=== PATIENT | male | born 1950 | race Caucasian/White ===

== ENCOUNTER 2018-03-07 04:56 | Inpatient (IN) ==
--- NOTE | 2018-02-23 13:20 | Anesthesiology Consultation ---
Date of Service February 23, 2018 Assessment & Plan (1) Encounter for pre-operative examination: Plan: - Check BSG AM DOS - PCP= 03/01/18= diabetes previously controlled with diet/exercise. Preop labs with glucose 266. Evaluated by PCP and patient started on Metformin. Patient advised to hold AM DOS. Surgeon made aware. Will check BSG AM DOS. - Hematology= 03/2017= Hx ITP/CLL. Prior response to steroids (but caused issue with glucose control); subsequently placed on eltrombopag with "wonderful response.. doing extremely well..with no evidence of progressive disease." Chart Review Chart Review: Acceptable Risk for Surgery and Patient seen in Pre Admission Testing Teaching & Discussion Pre-Anesthesia Teaching/Discussion Notes: Instructed NPO after midnight before surgery,except medications with 15 cc of water. Medication instructions provided according to the PAT guidelines. History Surgery Operation Date: 03/07/18 07:00 Proposed Procedures p Left Total Knee Replacement - Thierno Carr MD Height/Weight Height: 5 ft 9 in Weight: 113.5 kg Allergies Allergy/AdvReac Type Severity Reaction Status Date / Time lisinopril Allergy Cough Uncoded 03/07/18 06:00 Medications Home Medications Medication Instructions Recorded Confirmed Last Taken diclofenac sodium 75 mg PO BID 02/20/18 03/07/18 02/25/18 08:00 eltrombopag [Promacta] 25 mg PO Q2D 02/20/18 03/07/18 03/06/18 08:00 ibuprofen [Advil] 2 tab PO UD PRN 02/20/18 03/07/18 02/25/18 08:00 losartan 50 mg PO QAM 02/20/18 02/20/18 03/06/18 08:00 pantoprazole 40 mg PO Q2D 02/20/18 03/07/18 03/06/18 19:00 metformin 500 mg PO BID 03/03/18 03/07/18 03/06/18 19:00 Active Medications Generic Name Dose Route Start Last Admin Trade Name Freq PRN Reason Stop Dose Admin Acetaminophen 1,000 mg 03/07/18 06:00 03/07/18 06:12 Tylenol PO 03/07/18 18:00 1,000 mg PREOP RAJEEV Administration Famotidine 20 mg 03/07/18 06:00 03/07/18 06:13 Pepcid PO 03/07/18 18:00 20 mg PREOP RAJEEV Administration Gabapentin 300 mg 03/07/18 06:00 03/07/18 06:12 Neurontin PO 03/07/18 18:00 300 mg PREOP RAJEEV Administration Lactated Ringer's 1,000 mls @ 60 mls/hr 03/07/18 06:00 03/07/18 06:03 Lr IV 03/07/18 22:39 Not Given .[id number] RAJEEV Cefazolin Sodium 2,000 mg in 15 mls @ 3.75 mls/min 03/07/18 06:00 03/07/18 06 :58 Ancef 2000mg IV 03/07/18 18:00 3.75 mls/min PREOP RAJEEV Administration Protocol Bupivacaine Liposome 266 mg/ 100 mls @ 0 mls/hr 03/07/18 06:00 03/07/18 07:40 Bupivacaine HCl/Epinephrine INFIL 03/07/18 18:00 100 mls/hr Bitart 50 ml/ Sodium Chloride PREOP RAJEEV Administration 30 ml/ Syringe Lactated Ringer's 1,000 mls @ 999 mls/hr 03/07/18 06:00 03/07/18 07:25 Lr IV 03/07/18 18:00 999 mls/hr .Q1H1M RAJEEV Infusion Metoclopramide HCl 10 mg 03/07/18 06:00 03/07/18 06:12 Reglan PO 03/07/18 18:00 10 mg PREOP RAJEEV Administration Scopolamine 1.5 mg 03/07/18 06:00 03/07/18 06:13 Transderm-Scop TD 03/07/18 18:00 1.5 mg PREOP RAJEEV Administration Past Medical History Medical History Acid reflux "CONTROLLED" CLL (chronic lymphocytic leukemia) History of ITP HX ITP/THROMBOCYTOPENIA; S/P CHEMO TREATMENT/NOW STABLE ON PROMACTA (BASELINE PLTS NOW IN 200'S) Hx of sleep apnea S/P UPPP; NO DEVICE Hypertension Obesity Past Family History Family History Grandmother (Maternal) Family history of breast cancer Past Surgical History Surgical History History of colonoscopy History of endoscopy History of eye surgery EYEBROW/EYELIDS LIFT SURGERY History of left knee surgery History of uvulopalatopharyngoplasty 2/2 SLEEP APNEA Past Anesthesia History No Hx of Anesthesia Complications and No Family Hx of Anesthesia Complications History of PONV No Motion Sickness Screening History of Motion Sickness: No Social History Smoking Status: Former smoker tobacco type: cigarettes Smoking cigarettes per day: QUIT 1976 Do You Dip or Chew Tobacco: No (HX OF, QUIT 10 YRS AGO) Hx Alcohol Use: Yes Alcohol type: beer, wine and hard liquor alcohol intake frequency: other Alcohol Intake Frequency Comment: 5 DRINKS/WEEK Hx Substance Use: No substance use type: does not use Exercise / Class Metabolic Activity III < 4 Walking/Shop/Light housework Review of Systems Patient denies chest pain, shortness of breath, cough, wheezing, palpitations. Physical Exam Vital Signs Last Vital Signs Temp 37.1 C 03/07/18 05:43 Pulse 80 03/07/18 05:43 Resp 20 03/07/18 05:43 BP 162/86 H 03/07/18 05:43 Pulse Ox 95 03/07/18 05:43 VITALS BP 135/87 P 94 TEMP 98.0 SP02 95%RA RESP 16 Full neck and c-spine range of motion. Full TMJ range of motion. TMD 3 finger breaths Mallampati Score 1 Dentition: lower left side permanent bridge Lungs: clear throughout to auscultation Cardiac: regular rate and rhythm, no murmurs noted Spine: normal Carotid arteries: negative bruit Extremities: no edema Trimmed brunson Testing Electrocardiogram Date: 02/23/18 NSR with 87bpm. Minimal voltage criteria for LVH, may be normal variant. Chest X-Ray Date: 02/23/18 Findings: + NAD Laboratory Results 02/23/18 13:28 02/23/18 13:28 Blood Type O Positive 02/23/18 13:28 Antibody Screen NEGATIVE 02/23/18 13:28 PT 11.7 Seconds (9.0-12.0) 02/23/18 13:28 INR 1.2 (0.9-1.1) H 02/23/18 13:28 APTT 28.9 Seconds (21.0-31.0) 02/23/18 13:28 03/07/18 07:24 POC Glucose 184 H Surgeon made aware of elevated glucose; prior diabetes control with diet/ exercise per PCP-- PCP reviewed preop testing and initiated Metformin (surgeon aware).
--- NOTE | 2018-02-23 13:24 | PAT Medication Instructions ---
Medication Instructions Date of Service February 23, 2018 Home Medications diclofenac sodium 75 mg PO BID eltrombopag [Promacta] 25 mg PO Q2D ibuprofen [Advil] 2 tab PO UD PRN losartan 50 mg PO QAM pantoprazole 40 mg PO Q2D Continue as directed pantoprazole 40 mg PO Q2D ASK your surgeon for instructions diclofenac sodium 75 mg PO BID ibuprofen [Advil] 2 tab PO UD PRN ASK your prescriber and surgeon eltrombopag [Promacta] 25 mg PO Q2D DO NOT take the morning of surgery losartan 50 mg PO QAM Other Notes If you have any questions please call us at [phone] or [phone] or [phone] or [phone]
--- NOTE | 2018-02-23 14:04 | XRay Report ---
XR chest Pre-admission PA/Lat CLINICAL HISTORY: pat preoperative evaluation COMPARISON STUDY: 08/11/2016 FINDINGS: The bones soft tissues and hemidiaphragms are normal. The cardiomediastinal silhouette is n ormal. The lungs are clear. The pulmonary vasculature is normal. IMPRESSION: Negative chest. The above report was generated using voice recognition software. It may contain grammatical, syntax or spelling errors. Electronically signed by: Devonte Bledsoe M.D. 02/23/2018 2:02 PM
[2018-02-23 14:06] LABS: Basophils # (auto) 0.04 K/uL (0-0.2); Basophils % (auto) 0.4 %; Eosinophils # (auto) 0.11 K/uL (0-0.5); Hematocrit (blood only) 43.8 % (42-52); Hemoglobin 15.1 g/dL (14.0-18.0); Immature Granulocytes # (auto) 0.04 K/uL (0.00-0.02); Immature Granulocytes % (auto) 0.4 %; Lymphocytes # (auto) 2.11 K/uL (1.2-3.4); Mean Corpuscular Hgb Conc 34.5 g/dL (32-36); Mean Corpuscular Volume 90.9 fL (80-100); Mean Platelet Volume 10.8 fL (7.4-10.4); Monocytes # (auto) 0.51 K/uL (0.11-0.59); Monocytes % (auto) 4.8 %; Neutrophils # (auto) 7.73 K/uL (1.4-6.5); Neutrophils % (auto) 73.4 %; Platelet Count 228 K/uL (130-400); RDW Coefficient of Variation 12.8 % (11.5-14.5); RDW Standard Deviation 42.5 fL (36.4-46.3); Red Blood Count 4.82 M/uL (4.7-6.1); White Blood Count 10.54 K/uL (4.8-10.8)
[2018-02-23 14:18] LABS: INR 1.2 (0.9-1.1); Partial Thromboplastin Ratio 1.1; Partial Thromboplastin Time 28.9 Seconds (21.0-31.0); Prothrombin Time 11.7 Seconds (9.0-12.0)
[2018-02-23 15:40] LABS: BUN Creatinine Ratio 17.9 (10-20); Calcium 9.2 mg/dl (8.5-10.1); Creatinine Clr Calc Pharmacy 83.2 ml/min; Est GFR (African American) 82.8; Est GFR (Non-African American) 71.5; Potassium 4.1 mmol/L (3.5-5.1)
--- NOTE | 2018-03-03 08:08 | History and Physical Report ---
DATE OF ADMISSION: 03/07/2018 CHIEF COMPLAINT: Bilateral knee pain, DJD, left side greater than right. HISTORY OF PRESENT ILLNESS: The patient is a 67-year-old gentleman with a long history of knee problems who presents for surgical treatment of his left knee. 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 Del Rio for quite some time. He has been through extensive conservative treatment including injections which have become less successful over time. Both knees bother him quite a bit. He does have a history of open meniscectomy done by Dr. Gann when he was in high school on the left side. No groin pain, mostly just knee pain. The more he walks, the more it hurts. He is having difficulty doing his job and getting around like he liked to. He now would like to proceed with surgical treatment. Of note, the patient has a history of CLL as well as ITP managed by hydrogen power plant engineer in [place]. We will contact them and labs are all normal and they recommended just normal DVT prophylaxis. PAST MEDICAL HISTORY: 1. CLL, under control. 2. ITP, under current medical management by hydrogen power plant engineer. 3. Hypertension. 4. Asthma. 5. Obesity with a BMI of 37. 6. Gastroesophageal reflux disease. 7. Cervical spine disease. PAST SURGICAL HISTORY: Previous surgeries include: 1. Left knee open meniscectomy in high school years. 2. Bilateral blepharoplasty. ALLERGIES: None. CURRENT MEDICINES: Include: 1. Promacta for ITP. 2. Amlodipine 5 mg a day. 3. Zantac 150 mg twice a day. 4. Diclofenac. SOCIAL HISTORY: A 66-year-old male. He is . One drink per week. Two children. 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 FAMILY HISTORY: Noncontributory. REVIEW OF SYSTEMS: Significant for the CLL and ITP managed at [place]. He has had this for 15 years. No history of DVT or PE. No known bleeding problems. PHYSICAL EXAMINATION: GENERAL: Reveals a pleasant, middle-aged male who looks to be in pretty good health. HEENT: Benign. NECK: Supple. No lymphadenopathy. LUNGS: Clear to auscultation. HEART: Regular rate and rhythm. ABDOMEN: Soft, nontender, nondistended. EXTREMITIES: Grossly neurovascularly intact except as follows: Examination of the left knee reveals patient walks with a bit of a waddling gait. He has got varus alignment to his left knee. He has got well-healed medial incision. He does have a varus thrust with weightbearing. Range of motion is 5 to 125. He does have a soft endpoint to his Swati, but no pivot. He has got some slight valgus laxity to stress testing. X-RAYS: X-ray of left knee reviewed. Shows advanced left knee DJD. He has got complete loss of his medial joint space. He has got tibial femoral subluxation. He has got extensive osteophytes of the medial side of his knee. He has got less severe disease in his right knee. ASSESSMENT: A 66-year-old male with history of left knee open meniscectomy in the past with advanced bilateral knee degenerative joint disease. Left side is worse than the right. He has failed conservative treatment and would like to proceed with left knee replacement. PLAN: We are going to take him to the operating room and do a left total knee replacement. The risks and benefits of this procedure were explained to the patient include but not limited to DVT, PE, , infection, neurological injury, vascular injury, bleeding problem, pain, limited range of motion, stiffness, failure to relieve his symptoms, incomplete relief of symptoms, need for further surgery in future, fracture, leg length inequality, nerve palsy, etc. The patient understands and desires to proceed. Informed consent was obtained. He does have a history of CLL and ITP. We checked with hydrogen power plant engineer in [place] and they have just recommended normal DVT prophylaxis. In light of that, we use TEDs, SCDs, and aspirin twice a day. We will have to follow his platelet levels in the hospital. His blood glucose was elevated and he has seen Dr. Maldonado and he is undergoing management for this to get this under better control. As far as discharge plans, he is planning to be discharged to home using [facility] home health program. GRABIEL
[2018-03-07] MEDS: LR 500ML BOLUS, THEN 15ML/HR IV SCH ×6 (05:35→17:31)
[2018-03-07] MEDS ORDERED: METOCLOPRAMIDE HCL 10 MG TABLET PO SCH (06:00)
[2018-03-07] MEDS ORDERED: CEFAZOLIN 2000MG 2,000 MG/15 ML SYR IV SCH (06:00)
[2018-03-07] MEDS ORDERED: FAMOTIDINE 20 MG TAB PO SCH (06:00)
[2018-03-07] MEDS ORDERED: ACETAMINOPHEN 500 MG TAB PO SCH (06:00)
[2018-03-07] MEDS ORDERED: BUPIVACAINE LIPOSOME/PF 266 MG, BUPIVACAINE/EPINEPHRINE 50 ML, SODIUM CHLORIDE 0.9% 30 ... INFIL SCH (06:00)
[2018-03-07] MEDS ORDERED: SCOPOLAMINE 1.5 MG TDSY TD SCH (06:00)
[2018-03-07] MEDS ORDERED: GABAPENTIN 300 MG PO SCH (06:00)
[2018-03-07] MEDS ORDERED: LR 60ML/HR IV SCH (06:00)
[2018-03-07] MEDS ORDERED: fentaNYL citrate 100 MCG/2 ML VIAL ONE (06:24)
[2018-03-07] MEDS ORDERED: MIDAZOLAM HCL 1 MG/ML 2ML VIAL ONE ×2 (06:24→07:03)
[2018-03-07] MEDS ORDERED: BUPIVACAINE 0.5 % 5 MG/1 ML PF 10ML VIAL ONE (06:27)
[2018-03-07] MEDS ORDERED: ROPIVACAINE 0.5% 5 MG/ML 30 ML VIAL ONE (06:27)
[2018-03-07] MEDS ORDERED: BACITRACIN INJ 50,000 UNIT VIAL ONE (06:28)
[2018-03-07] MEDS ORDERED: SODIUM CHLORIDE 0.9% PF 50 ML VIAL ONE (06:28)
[2018-03-07] MEDS ORDERED: BUPIVACAINE LIPOSOME 1.3% 266 MG/20 ML VIAL ONE (06:29)
[2018-03-07] MEDS ORDERED: EPINEPHrine INJ 1 MG/ML AMP ONE (06:29)
[2018-03-07] MEDS ORDERED: BUPIVACAINE 0.25% 30 ML VIAL ONE (06:29)
[2018-03-07] MEDS ORDERED: TRANEXAMIC ACID 1,000 MG **IV Intra-op IV SCH (06:30)
--- NOTE | 2018-03-07 06:54 | History & Physical Bridge Note ---
Date of Service March 07, 2018 History & Physical Bridge Note I have examined the patient, reviewed the History & Physical and in the interval since the performance of the History & Physical I have noted the following changes of clinical significance: no changes noted
[2018-03-07] MEDS ORDERED: PROPOFOL IV EMULSION 10 MG/ML 20 ML VIAL IV ONE ×2 (07:03→08:52)
[2018-03-07] MEDS ORDERED: VANCOMYCIN HCL 1000MG/20ML VIAL ONE (07:07)
[2018-03-07] MEDS ORDERED: ATROPINE SULFATE 0.1 MG/ML 10ML SYR IV PRN (07:48)
[2018-03-07] MEDS ORDERED: ePHEDrine sulfate 50 MG/ML AMP IV PRN (07:48)
--- NOTE | 2018-03-07 09:03 | Post Operative Brief Note ---
Immediate Post Op Note v1 Date of Surgery March 07, 2018 Pre & Post Diagnosis Operation Date: 03/07/18 07:00 Pre-Op Diagnosis: Left Knee Degenerative Joint Disease Post-Op Diagnosis: Left Knee Degenerative Joint Disease Procedure Operation Date: 03/07/18 07:00 Actual Procedures p Left Total Knee Arthroplasty, Cemented(Left) - Thierno Carr MD Surgeon Thierno Carr MD Oval Or Circular Glass Cutter Tisha, PAC Estimated Blood Loss 50 Findings Consistent with Post-Op Diagnosis Fluids 600 cc Specimens Left Knee Drains Jones Catheter Anesthesia Type Spinal MAC Complications none Disposition Accompanied Patient To Recovery: No Disposition: Recovery Room
--- NOTE | 2018-03-07 09:33 | XRay Report ---
XR knee LT 2V routine CLINICAL HISTORY: Surgical Post Op COMPARISON: None. DISCUSSION: Total left knee arthroplasty. Good contact between prosthetic and underlying bone. Expect ed postoperative soft tissue change. IMPRESSION: Anatomic alignment post total left knee arthroplasty. The above report was generated using voice recognition software. It may contain grammatical, syntax or spelling errors. Electronically signed by: Devonte Bledsoe M.D. 03/07/2018 9:32 AM
[2018-03-07] MEDS ORDERED: BISACODYL 10 MG SUPP PR PRN (10:30)
[2018-03-07] MEDS ORDERED: MAGNESIUM HYDROXIDE SUSP 30 ML UDC PO PRN (10:30)
[2018-03-07] MEDS ORDERED: CARBOHYDRATES FOR HYPOGLYCEMIA PO PRN (10:30)
[2018-03-07] MEDS ORDERED: METOCLOPRAMIDE HCL INJ 5 MG/ML 2 ML VIAL IV PRN (10:30)
[2018-03-07] MEDS ORDERED: HYDROmorphone INJ 0.5 MG/0.5 ML SYR IV PRN (10:30)
[2018-03-07] MEDS ORDERED: ALUMINUM/MAGNESIUM SUSP 30 ML UDC PO PRN (10:30)
[2018-03-07] MEDS ORDERED: ONDANSETRON INJ 2 MG/ML 2 ML VIAL IV PRN (10:30)
[2018-03-07] MEDS ORDERED: GLUCAGON FOR INJ 1 MG VIAL SQ PRN (10:30)
[2018-03-07] MEDS ORDERED: PHARMACY GLYCEMIC MGMT CONSULT STA (10:30)
[2018-03-07] MEDS ORDERED: DEXTROSE 50% 50 ML SYRINGE IV PRN (10:30)
[2018-03-07] MEDS ORDERED: GLUCOSE 10 TABS/TUBE PO PRN (10:30)
[2018-03-07] MEDS ORDERED: GLUCOSE 40% GEL 15 GM TUBE PO PRN (10:30)
[2018-03-07] MEDS ORDERED: NALOXONE HCL 0.4 MG/1 ML VIAL/CARP IV PRN (10:30)
[2018-03-07] MEDS ORDERED: TAMSULOSIN HCL 0.4 MG CAP PO PRN (10:30)
--- NOTE | 2018-03-07 10:50 | Anesthesiology Progress Note ---
Date of Service March 07, 2018 Anesthesia Post Procedure Vital Signs Vital Signs: Temp Pulse Pulse Resp BP Pulse Ox 03/07/18 09:55 62 16 112/70 95 03/07/18 09:45 36.0 C L 61 15 94/60 L 95 03/07/18 09:35 63 17 104/60 97 03/07/18 09:25 65 12 103/73 96 03/07/18 09:15 65 21 105/70 95 03/07/18 09:09 36.3 C L 65 17 108/60 95 03/07/18 05:43 37.1 C 80 20 162/86 H 95 Pain Intensity Left Knee: Pain Intensity: 0 Notes Mental Status: alert / awake / arousable and participated in evaluation Patient Amnestic to Procedure: Yes Nausea / Vomiting: adequately controlled Pain: adequately controlled Airway Patency, RR, SpO2: stable & adequate BP & HR: stable & adequate Hydration State: stable & adequate Anesthetic Complications: no major complications apparent
[2018-03-07] MEDS ORDERED: PHARMACY GLYCEMIC MGMT CONSULT PRN (11:00)
[2018-03-07] MEDS ORDERED: INSULIN GLARGINE SOLOSTAR 100 UNITS/ML 3 ML PEN SC ONE ×2 (11:30→21:00)
[2018-03-07] MEDS: SODIUM CHLORIDE 0.9% 1000ML 1,000 ML IV SCH ×2 (12:06→19:09)
--- NOTE | 2018-03-07 12:49 | Pharmacy Report ---
Glycemic Control Consultation - Date of Service March 07, 2018 - Scope Scope: Glycemic Pharmacist consulted by Dr Thierno Carr on 03/07/2018 for glycemic control and to write orders per [facility] inpatient glycemic control protocol - Objective Weight: 113.5 kg Accuchecks BSG (last 24hrs): 03/07/18 03/07/18 03/07/18 07:24 09:15 12:11 POC Glucose 184 H 195 H 148 H - Recent Pertinent Medications Outpatient Anti-diabetic Regimen: * metformin 500mg po bid * A1c: pt reports 8.5% on 03/02/18. * ordered for tomorrow am with labs. Risk Factors for Insulin Resistance: * IVF: NS@150 ml/hr * Recent Surgery: TKA POD #0 * Diet: T2DM - Assessment & Plan Assessment & Plan: ASSESSMENT: * Mr. Irene is a 67 yo male s/p TKA. * Pt reports HbA1c of 8.4% on 03/02. He is currently only on metformin 500mg bid as his outpatient regimen. * He did not receive any pre-operative steroids so I have chosen to use weight based insulin dosing with a stress level of 2. * Ordered 10 units of lantus immediately post-op since he had a reported bsg of 195. PLAN FOR INPATIENT GLYCEMIC CONTROL: * Holding outpatient oral diabetes medications * Basal insulin * Lantus per sliding scale * for bsg less than 140 give 0 units * for bsg 140 or greater give 10 units * Bolus insulin * NovoLog per scale ACHS or Q6hrs while NPO * Goal Range: Low 110 mg/dL - High 140 mg/dL * Correction Factor: 20 mg/dL/unit * Nutritional / Prandial insulin per carb ratio of 1 unit per 7 grams CHO consumed * Please note that the plan above was derived based on current level of insulin resistance and hospital stress. These recommendations are appropriate for inpatient admission only. Plan of care upon discharge will need to be reassessed to avoid potential outpatient hypo/hyperglycemia. Thank you.
[2018-03-07] MEDS: INSULIN ASPART 100 UNITS/ML 3 ML PEN SC SCH ×3 (13:17→22:27)
[2018-03-07] MEDS: KETOROLAC TROMETHAMINE 15 MG/ML VIAL IV SCH ×3 (13:17→23:48)
[2018-03-07] MEDS: ACETAMINOPHEN 500 MG TAB PO SCH ×2 (14:23→22:28)
[2018-03-07] MEDS: OXYCODONE HCL IR 5 MG TAB (IMMEDIATE RELEASE) PO PRN (14:23)
[2018-03-07] MEDS ORDERED: TRANEXAMIC ACID 1,000 MG in 0.9 % SODIUM CHLORIDE 100 ML IV SCH (15:00)
[2018-03-07] MEDS: CEFAZOLIN 2000MG 2,000 MG/15 ML SYR IV SCH ×2 (15:11→22:26)
[2018-03-07] MEDS: CHECK SCOPOLAMINE PATCH PLACEMENT SCH ×2 (15:49→23:48)
[2018-03-07] MEDS: FERROUS GLUCONATE 324 MG TAB PO SCH (17:26)
[2018-03-07] MEDS: ASCORBIC ACID 500 MG TAB PO SCH (17:26)
[2018-03-07] MEDS: DOCUSATE SODIUM 100 MG CAP PO SCH (21:10)
[2018-03-07] MEDS: SENNA 8.6 MG TAB PO SCH (21:10)
[2018-03-07] MEDS: TAPENTADOL HCL ER 50 MG TABCR PO SCH (21:10)
--- NOTE | 2018-03-08 00:28 | Operative Report ---
DATE OF OPERATION: 03/07/2018 SURGEON: Thierno Carr MD PROJECT LEADER: DYLON Arias PREOPERATIVE DIAGNOSIS: Left knee degenerative joint disease. POSTOPERATIVE DIAGNOSIS: Same. PROCEDURE PERFORMED: Left cemented posterior stabilized total knee arthroplasty. COMPLICATIONS: None. ESTIMATED BLOOD LOSS: 50 mL. FLUID REPLACEMENT: 600 mL crystalloid fluid replacement. TOURNIQUET TIME: 79 minutes at 300 mmHg. ANESTHESIA: Spinal with adductor canal block. DRAINS: None. SPECIMENS: Left knee sent for pathology. OPERATIVE INDICATIONS: The patient is a 67-year-old gentleman who has had a long history of bilateral knee pain and discomfort, left side greater than the right. He underwent an open meniscectomy back in the late 60s done by Dr. Gann. Over the past 20 years, he developed increased pain, discomfort and deformity in his left knee. He failed all conservative care. He elected to proceed with operative treatment. The patient had significant varus deformity with tibial femoral subluxation and therefore we used a stem tibial tray to maximize stability and decrease loosening. OPERATIVE FINDINGS: Operative findings revealed advanced left knee DJD. He had extensive grade 4 [id number] disease of the medial and patellofemoral compartments with tibial femoral subluxation and extreme bony eburnation on the medial side. He had significant wear of the medial tibial plateau. He had a fixed varus deformity to his knee with about a 15-degree flexion contracture. He had a chronic ACL deficiency. Upon entering the knee joint, the patient's knee joint fluid did look quite inflammatory. It did not look infectious, but inflammatory in nature. OPERATIVE IMPLANTS: Operative implants consisted of: 1. Biomet Vanguard size 72.5 left posterior bifemoral component. 2. Biomet size 75 tibial tray with an 80 x 14 mm offset stem with a 5-mm offset and a small cruciate wing. 3. A 12-mm posterior stabilized polyethylene insert. 4. A 34 x 8.5 all poly patella. OPERATIVE PROCEDURE: The patient was taken to the operating room, identified and placed on the operating table in supine position. All contact areas were appropriately padded. IV antibiotics were provided by anesthesia team. A spinal anesthetic and adductor canal block were provided in the holding area. Jones catheter was placed in sterile fashion. A left thigh tourniquet was then placed and the left lower extremity was then prepped and draped in the usual sterile fashion. The left lateral leg was elevated and exsanguinated using an Esmarch and tourniquet was placed at 300 mmHg. An anterior approach to the left knee was then performed through a longitudinal incision centered over the patella. Sharp dissection was carried through the subcutaneous tissue down to the level of the extensor mechanism. A medial parapatellar arthrotomy incision was made. Some subperiosteal dissection was carried out medially. I did a pretty extensive dissection medial and posteromedially due to his flexion contracture and his fixed varus deformity. The fat pad was resected from beneath the patellar tendon. The lateral patellofemoral ligament was released. The patella was everted and the knee was flexed. The osteophytes were taken off the distal femur. The ACL was absent. The PCL was released from the distal femur and the tibia subluxated anteriorly. I then resected the tibial eminence. The intramedullary canal was entered. I reamed up to a size 14 and then used the reamer as an intramedullary guide to cut the proximal tibia. We cut this several millimeters above the most deficient aspect of the medial tibial plateau as it was pretty worn. I then resected some osteophytes. We then sized this to a size 75 tibia. The tibial tray was pinned in place. The proximal tibia was then prepared for a small cruciate wing and a 5-mm offset post with an 80 x 14 mm stem. The trial implant was assembled and placed in the tibia and fit nicely. Attention was then drawn to the femur. The distal femur was entered with a sharp drill bit. Intramedullary canal was suctioned. A left 6-degree valgus cutting guide was placed. Distal femoral cutting block was pinned in place. Distal femoral cut was made to take an additional 3 mm of bone off the distal femur. Femur was then sized to a size 72.5. The AP cutting block was pinned parallel to the epicondylar axis, which was 5 degrees of external rotation. The anterior cut, anterior chamfer cut, posterior cut, posterior chamfer cuts were made. Box cutting guide was placed and adjusted slightly lateral and the box cut was made. The knee was flexed. The remnants of the medial and lateral menisci were excised. The osteophytes were taken off the posterior aspect of the femur. Trial femoral component was placed. I then trialed the knee and the 12 mm insert fit most appropriately. Attention was then drawn to the patella. The patella was cleaned of all soft tissues. Patellar thickness measured 25 mm in thickness, it was cut down to 14. It was sized to a size 34 patella. Lug holes were drilled for a 34 patella. Lateral osteophyte was removed. Patella button was placed. Knee was taken through range of motion and patella tracked nicely with no thumbs test. Attention was then drawn toward placing the permanent components. All trial components were removed. A bone plug was placed in the distal femur to limit blood loss. A double batch of Palacos G cement was mixed. I did add an additional gram of vancomycin due to his history of this open surgery in the past and the fact that his knee looked pretty inflamed. A Biomet Vanguard size 72.5 posterior stabilized femoral component, size 75 tibial tray with an 80 x 14 mm offset stem with a small cruciate wing, a 12 mm posterior stabilized polyethylene insert, and a 34 x 8.5 all poly patella were then cemented in place. Knee was brought out into full extension until the cement hardened. A final cement check was then performed. Pericapsular tissues were injected with a total of 100 mL of a combination of 20 mL of Exparel, 30 mL of normal saline, 50 mL of 0.25% Marcaine with epinephrine. The patient did receive 1 gram of tranexamic acid. The tourniquet was then let down for a final tourniquet time of 79 minutes. Hemostasis was assured with the use of electrocautery. The extensor mechanism was then closed with a combination of #1 PDS suture and #1 Vicryl suture in a [id number] fashion. The extensor mechanism was checked and found to be intact. The subcutaneous tissues were then closed with #2 Dexon suture in buried interrupted fashion. Skin was closed with skin kerrie. Leg was then cleaned, dried and a sterile dressing of Xeroform, 4 x 4, sterile cast padding, Willi bandage were applied. The patient was then transferred to the recovery room in stable condition. The patient tolerated the procedure well with no complication. All needle and sponge counts were correct at the end of the operation. I attest to the content of the Intraoperative Record and any orders documented therein. Any exception s are noted below.
[2018-03-08] MEDS: SODIUM CHLORIDE 0.9% 1000ML 1,000 ML IV SCH (01:36)
[2018-03-08] MEDS: KETOROLAC TROMETHAMINE 15 MG/ML VIAL IV SCH ×4 (05:34→23:19)
[2018-03-08] MEDS: ACETAMINOPHEN 500 MG TAB PO SCH ×3 (06:13→21:17)
[2018-03-08 07:04] LABS: Hematocrit (blood only) 35.2 % (42-52); Mean Corpuscular Hgb Conc 34.1 g/dL (32-36); Mean Corpuscular Volume 91.9 fL (80-100); Mean Platelet Volume 10.1 fL (7.4-10.4); Platelet Count 196 K/uL (130-400); RDW Standard Deviation 43.7 fL (36.4-46.3); Red Blood Count 3.83 M/uL (4.7-6.1); White Blood Count 11.07 K/uL (4.8-10.8)
[2018-03-08 07:27] LABS: Estimated Average Glucose 200 mg/dl
[2018-03-08 07:38] LABS: BUN Creatinine Ratio 18.1 (10-20); Creatinine Clr Calc Pharmacy 96.8 ml/min; Est GFR (African American) 99.4; Est GFR (Non-African American) 85.8; Potassium 3.9 mmol/L (3.5-5.1)
[2018-03-08] MEDS: OXYCODONE HCL IR 5 MG TAB (IMMEDIATE RELEASE) PO PRN ×3 (07:50→22:57)
[2018-03-08] MEDS: FERROUS GLUCONATE 324 MG TAB PO SCH ×2 (08:39→16:26)
[2018-03-08] MEDS: ASCORBIC ACID 500 MG TAB PO SCH ×2 (08:39→16:27)
[2018-03-08] MEDS: INSULIN ASPART 100 UNITS/ML 3 ML PEN SC SCH ×4 (08:40→21:16)
[2018-03-08] MEDS: LOSARTAN POTASSIUM 50 MG TAB PO SCH (08:43)
[2018-03-08] MEDS: MULTIVITAMIN TAB PO SCH (08:44)
[2018-03-08] MEDS: TAPENTADOL HCL ER 50 MG TABCR PO SCH ×2 (08:47→20:45)
[2018-03-08] MEDS: DOCUSATE SODIUM 100 MG CAP PO SCH ×2 (08:47→20:44)
[2018-03-08] MEDS ORDERED: PANTOprazole 40 MG TAB PO SCH (09:00)
[2018-03-08] MEDS ORDERED: PROMACTA PO SCH ×2 (09:00)
[2018-03-08] MEDS ORDERED: INSULIN GLARGINE SOLOSTAR 100 UNITS/ML 3 ML PEN SC SCH (09:00)
--- NOTE | 2018-03-08 09:23 | Pharmacy Report ---
Pharmacy Glycemic Short Note 2 - Date of Service March 08, 2018 - Glycemic Short BSG Results (Last 24 hours): 03/07/18 03/07/18 03/07/18 09:15 12:11 17:02 Glucose POC Glucose 195 H 148 H 158 H 03/07/18 03/08/18 03/08/18 22:02 06:39 07:51 Glucose 145 H POC Glucose 147 H 142 H OUTPATIENT ANTIDIABETIC REGIMEN: * metformin 500mg PO BID * A1c: 8.6% on 03/08/18 ASSESSMENT: * Mr. Irene is a 67 yo male POD #1 s/p TKA * Patient demonstrated good glycemic control since surgery - he received 39 units of SQ insulin yesterday * Will resume metformin since he is tolerating oral intake and renal function is at baseline * Fasting BSG was near goal - Lantus dose will be reduced slightly since stress from surgery has resolved * Novolog carb ratio will be loosened after metformin is resumed PLAN FOR INPATIENT GLYCEMIC CONTROL: * Resume metformin 500 mg PO BID - starting with dinner * Basal insulin - decrease * Lantus per scale SQ BID * 0 units for BSG less than 140 mg/dL * 8 units for BSG 140 mg/dL or more * Bolus insulin - loosen this evening * NovoLog per scale ACHS or Q6hrs while NPO * Goal Range: Low 110 mg/dL - High 140 mg/dL * Correction Factor: 20 mg/dL/unit * Nutritional / Prandial insulin per carb ratio of 1 unit per 7 grams CHO consumed --> change to 1 unit per 9 grams of CHO after metformin resumed PLAN FOR DISCHARGE: * A1c of 8.6% is above goal based on patient age and comorbidities * CDE discussed dietary modifications with the patient - he agrees to cut back on carbs and increase consumption of protein and veggies. He also agrees to notify PCP of values persistently > 160 * May consider addition of second agent. Dose of metformin could be titrated, however patient reports nausea since starting it (despite taking with food). * Options include glipizide 5 mg PO daily (30 min prior to breakfast) or Januvia 100 mg PO daily
[2018-03-08] MEDS: RIVAROXABAN 10 MG TABLET PO SCH (10:02)
--- NOTE | 2018-03-08 13:24 | Progress Note ---
DATE: 03/08/2018 SUBJECTIVE: A 67-year-old gentleman postop day 1 from a left knee replacement. He is doing pretty well. His thigh has been sore when he is doing therapy. No chest pain, no shortness of breath. Not feeling dizzy or lightheaded. OBJECTIVE: VITAL SIGNS: Temperature 36.9. Some intermittent hypertension. Rest of the vital signs have been stable. GENERAL: Examination shows a pleasant middle-aged male. He is sitting up in his bedside chair eating his lunch. He looks pretty comfortable. EXTREMITIES: Examination of the left leg reveals the dressing to be clean, dry, and intact. He can dorsiflex and plantarflex his foot appropriately. He is neurologically intact. LABORATORY DATA: Hemoglobin 12.0, hematocrit 35.2, his platelet count is still normal at 196. Electrolytes are stable. ASSESSMENT: A 67-year-old gentleman postop day 1 from a left knee replacement, doing pretty well. His pain seems to be reasonably well controlled. He is neurologically intact. PLAN: 1. DVT prophylaxis is thigh-high TEDs, SCDs, and Xarelto. He does have a history of ITP, and I do not want to use aspirin due to the platelet issue. 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 2. PT/OT. Weightbear as tolerated. Left total knee protocol. 3. Pain control, doing pretty well with current pain regimen. 4. Disposition: Plan is to discharge to home with some home health once adequately recovered.
[2018-03-08] MEDS: METFORMIN HCL 500 MG TAB PO SCH (16:26)
[2018-03-08] MEDS: SENNA 8.6 MG TAB PO SCH (20:37)
[2018-03-08] MEDS: INSULIN GLARGINE SOLOSTAR 100 UNITS/ML 3 ML PEN SC SCH (21:15)
[2018-03-09] MEDS: ACETAMINOPHEN 500 MG TAB PO SCH (06:17)
[2018-03-09] MEDS: KETOROLAC TROMETHAMINE 15 MG/ML VIAL IV SCH (06:17)
[2018-03-09 06:39] LABS: Hematocrit (blood only) 34.9 % (42-52); Hemoglobin 11.8 g/dL (14.0-18.0); Mean Corpuscular Hgb Conc 33.8 g/dL (32-36); Mean Corpuscular Volume 92.3 fL (80-100); Mean Platelet Volume 10.2 fL (7.4-10.4); Platelet Count 211 K/uL (130-400); RDW Coefficient of Variation 12.9 % (11.5-14.5); RDW Standard Deviation 43.6 fL (36.4-46.3); Red Blood Count 3.78 M/uL (4.7-6.1); White Blood Count 10.45 K/uL (4.8-10.8)
--- NOTE | 2018-03-09 07:37 | Progress Note ---
DATE: 03/09/2018 SUBJECTIVE: A 67-year-old gentleman postop day 2 from a left knee replacement. He is doing pretty well. Had some spasms in the night which scared him and caused some pain, but doing better this morning. No chest pain or shortness of breath. Not feeling dizzy or lightheaded. OBJECTIVE: VITAL SIGNS: Temperature 36.7. Vital signs stable. EXTREMITIES: Examination of left leg reveals the incision to be clean, dry and intact. Some moderate swelling. No drainage. Calf is soft and supple. He is neurologically intact. LABORATORY DATA: Platelets are still normal at 211. Hemoglobin 11.8. Hematocrit 34.9. ASSESSMENT: A 67-year-old gentleman with underlying ITP and newly diagnosed diabetes, postop day 2 from a left knee replacement, doing pretty well. Platelets are stable. Pain is controlled. PLAN: 1. DVT prophylaxis including thigh-high TEDs, SCDs, and going to use Xarelto for 1 month. 2. PT/OT. Weight bear as tolerated. Left total knee protocol. 3. Pain control, doing well with current pain regimen. 4. Disposition: Plan to discharge to home with some home health later today.
[2018-03-09] MEDS: ASCORBIC ACID 500 MG TAB PO SCH (07:52)
[2018-03-09] MEDS: FERROUS GLUCONATE 324 MG TAB PO SCH (07:52)
[2018-03-09] MEDS: LOSARTAN POTASSIUM 50 MG TAB PO SCH (07:52)
[2018-03-09] MEDS: MULTIVITAMIN TAB PO SCH (07:53)
[2018-03-09] MEDS: RIVAROXABAN 10 MG TABLET PO SCH (07:53)
[2018-03-09] MEDS: METFORMIN HCL 500 MG TAB PO SCH (07:54)
[2018-03-09] MEDS: INSULIN ASPART 100 UNITS/ML 3 ML PEN SC SCH (07:56)
[2018-03-09] MEDS: INSULIN GLARGINE SOLOSTAR 100 UNITS/ML 3 ML PEN SC SCH (07:56)
[2018-03-09] MEDS: TAPENTADOL HCL ER 50 MG TABCR PO SCH (08:01)
[2018-03-09] MEDS: OXYCODONE HCL IR 5 MG TAB (IMMEDIATE RELEASE) PO PRN (08:01)
[2018-03-09] MEDS: DOCUSATE SODIUM 100 MG CAP PO SCH (08:01)
--- NOTE | 2018-03-11 08:10 | Discharge Summary ---
ADMITTING PHYSICIAN AND SURGEON: Thierno Carr MD ADMITTING DIAGNOSIS: Left knee degenerative joint disease. SURGERY PERFORMED: Left total knee arthroplasty. SECONDARY DIAGNOSES: Chronic lymphocytic leukemia, idiopathic thrombocytopenic purpura, hypertension, asthma, obesity, gastroesophageal reflux disease, cervical spine disease. CONSULTS: None obtained. HISTORY AND PHYSICAL EXAMINATION: Well documented in the patient's chart. HOSPITAL COURSE: The patient was admitted on 03/07/2018, underwent total knee arthroplasty, tolerated the procedure well. There were no complications. He was transferred to the PACU postoperatively and later to the orthopedic floor for further care. He was given Ancef for antibiotic prophylaxis, CASS stockings, SCDs and Xarelto for DVT prophylaxis. Hemoglobin, hematocrit and vital signs were monitored during his hospital stay and remained stable. He developed some postoperative anemia, did not require any blood transfusions. There were no complications. By postoperative day 2, he was tolerating a diabetic diet. Pain was controlled with oral pain medicine. He was participating in physical therapy. On postop day 2, he was discharged home, set up with home health services. He was given printed discharge instructions including new prescriptions for extra-strength Tylenol, oxycodone, and Xarelto. Continue his home medications. Continue physical therapy, weightbearing as tolerated, CASS stockings. Follow up approximately 2 weeks postoperatively or sooner if there are any problems or concerns.
== END 2018-03-09 10:30 | disposition home health service (06) | DRG 470 ==
LOC: ASU 04:56 → 3E 09:08

== ENCOUNTER 2020-10-03 16:55 | Inpatient (IN) ==
[2020-10-03] MEDS ORDERED: SODIUM CHLORIDE 0.9% 500 ML IV ONE (17:39)
[2020-10-03 17:44] LABS: INR 1.2 (0.9-1.1); Partial Thromboplastin Ratio 0.9; Partial Thromboplastin Time 23.1 Seconds (21.0-31.0); Prothrombin Time 11.7 Seconds (9.0-12.0)
--- NOTE | 2020-10-03 17:44 | XRay Report ---
XR chest 1V portable HISTORY: Atypical Chest Pain COMPARISON: Chest 05/11/2019. FINDINGS: The lungs are clear. Cardiac silhouette is normal in size. No pleural effusions. No pneumot horax. IMPRESSION: No acute process. ACT 112: Negative or not required by law. Electronically signed by: Emmanuel Last M.D. 10/03/2020 5:42 PM
[2020-10-03 17:49] LABS: Alanine Aminotransferase 36 U/L (12-78); Albumin Level 3.7 gm/dl (3.4-5.0); Aspartate Aminotransferase 18 U/L (15-37); BUN Creatinine Ratio 20.5 (10-20); Blood Urea Nitrogen 18 mg/dl (7-18); Calcium 9.2 mg/dl (8.5-10.1); Carbon Dioxide 26 mmol/L (21-32); Chloride 109 mmol/L (98-107); Creatinine Clr Calc Pharmacy 88.5 ml/min; Est GFR (African American) 100.4 ml/min; Est GFR (Non-African American) 86.6 ml/min; Glucose 85 mg/dl (70-99); Sodium 139 mmol/L (136-145)
[2020-10-03 17:54] LABS: Alkaline Phosphatase 66 U/L (45-117); Bilirubin,Total 0.7 mg/dl (0.2-1); Globulin 3.5 gm/dl (2.5-4.0); Hemoglobin 15.3 g/dL (14.0-18.0); Mean Corpuscular Hemoglobin 31.6 pg (25-34); Mean Corpuscular Hgb Conc 34.8 g/dL (32-36); Mean Corpuscular Volume 90.9 fL (80-100); Platelet Count 24 K/uL (130-400); Red Blood Count 4.84 M/uL (4.7-6.1); Total Protein 7.2 gm/dl (6.4-8.2); Troponin I < 0.015 ng/ml (0-0.045); White Blood Count 13.37 K/uL (4.8-10.8)
[2020-10-03 18:03] LABS: Phosphorus 3.3 mg/dl (2.5-4.9)
--- NOTE | 2020-10-03 18:04 | Emergency Department Note ---
Impression & Plan Atrial fibrillation with rapid ventricular response, Hypertension, Chronic ITP (idiopathic thrombocytopenia) ED Provider Note NAME: SARAH TEE AGE: 70 SEX: M ARRIVES VIA: Ambulance INFORMANT: Patient, ED PROVIDER(S): Ian Sharma MD CHIEF COMPLAINT: Referred. New onset atrial fibrillation. PLAN: Disposition: Admit MEDICAL DECISION MAKING: The patient is a pleasant 70-year-old gentleman with a past medical history of CLL, ITP, hypertension, diabetes who presents [facility] department referred from his PCPs office for evaluation of new onset atrial fibrillation in the setting of ongoing symptoms of generalized weakness, cough and mild shortness of breath for the past several weeks where it was noted that the patient's blood pressure was lower than his baseline which he reports is usually 130s/80s but has been mostly 100s/60s. He further reports that he has been following closely with blood work twice weekly with the cancer center for his ITP which has recurred and recently had platelets as low as 25K. He denies any fevers, chills, vomiting, diarrhea or urinary symptoms. He does feel as though he is eating and drinking normally. On arrival the patient is fatigued appearing but no acute distress, afebrile with heart rate in atrial fibrillation in the 110-120s and vital signs otherwise stable. He appears clinically dry. EKG shows atrial fibrillation without overt acute ischemia. Chest x-ray negative for acute cardiopulmonary process. WBC 13.3K nonspecific. H/H within normal limits. Platelets 24K which are similar to his report of recent values followed by [facility]. Chemistry without metabolic acidosis. BUN/creatinine> 20 consistent with patient's clinically dry appearance. Electrolytes and LFTs without significant abnormality. Troponin negative/undetectable. Lyme screen was negative. Liliana plasma smear was negative. Anaplasma DNA is pending. COVID-19 PCR was negative. Given the patient's new onset atrial fibrillation in the setting of his recurrence of ITP and his report of recent decreased blood pressures reasonable to proceed with admission for further evaluation and management. The patient and his are in agreement with this plan. [id number] score is 2 and so anticoagulation would typically be indicated. However HAS-bled score is 3 given his current thrombocytopenia and so he is also at increased bleeding risk. Anti-coagulation deferred. Heart rate did somewhat improve with IV fluid hydration to the 110s-120s. He was ordered for 5 mg IV Lopressor for additional rate control. Case was discussed with Dr. Lane, [facility] [place] [place] hospitalist, who will evaluate the patient for admission. Triage Nursing notes reviewed and agree them. prior medical records reviewed Vital Signs: reviewed and remarkable for tachycardia. Differential diagnosis: Premature contractions, electrolyte abnormality, cardiac dysrhythmia, thyroid dysfunction, pulmonary embolism, infection, gastrointestinal, as well as other pathologies. ER treatment provided: See below. Diagnostics interpreted by me: ECG: Atrial fibrillation, 131 bpm, PVCs, no overt ST elevation or depression, QTC 460, QRS 94. Cardiac Monitoring: An order for continuous cardiac monitoring was placed and demonstrated Atrial fibrillation, 131 bpm, PVCs. Laboratory studies: See below Imaging studies: See below Consultation(s): Case was discussed with Dr. Lane, [facility] [place] [place] hospitalist, who will evaluate the patient for admission. HPI: The patient is a pleasant 70-year-old gentleman with a past medical history of CLL, ITP, hypertension, diabetes who presents emerge department referred from his PCPs office for evaluation of new onset atrial fibrillation in the setting of ongoing symptoms of generalized weakness, cough and mild shortness of breath for the past several weeks where it was noted that the patient's blood pressure was lower than his baseline which he reports is usually 130s/80s but has been mostly 100s/60s. He further reports that he has been following closely with blood work twice weekly with the cancer center for his ITP which has recurred and recently had platelets as low as 25K. He denies any fevers, chills, vomiting, diarrhea or urinary symptoms. He does feel as though he is eating and drinking normally. ROS: See above HPI for pertinent positives & negatives. A total of 10 systems reviewed and were otherwise negative. PAST MEDICAL HISTORY:See Below PAST SURGICAL HISTORY:See Below FAMILY HISTORY:See Below SOCIAL HISTORY:See Below HOME MEDICATIONS:See Below ALLERGIES:See Below VITALS:See Below PHYSICAL EXAMINATION: GENERAL: Awake, alert, fatigued-appearing, in no distress HENT: Normocephalic, atraumatic. Oropharynx with dry mucous membranes and otherwise unremarkable. EYES: Normal conjunctiva. Sclera non-icteric. NECK: Supple. No nuchal rigidity. FROM. No JVD. RESPIRATORY: Clear to auscultation. CARDIAC: Tachycardic rate, irregular rhythm. Extremities warm and well perfused. Pulses equal. ABDOMEN: Soft, non-distended. No tenderness to palpation. No rebound or guarding. No masses. RECTAL: Deferred. MUSCULOSKELETAL: Chest examination reveals no tenderness. The back is symmetrical on inspection without obvious abnormality. There is no CVA tenderne ss to palpation. No joint edema. LOWER EXTREMITIES: Calves are equal size bilaterally and non-tender. No edema. No discoloration. NEURO: Normal sensorium. No sensory or motor deficits noted. SKIN: No rash or jaundice noted. ED COURSE: Critical Care: I have personally spent greater than 35 minutes of critical care time in the direct management of this patient. This includes bedside care, interpretation of diagnostic studies, and testing, discussion with consultants, patient, and family members, and other required patient management activities. This 35 minutes is in excess of all separately billable procedures. Ian Sharma MD Past Med/Surg History Medical History Acid reflux "CONTROLLED" CLL (chronic lymphocytic leukemia) History of ITP HX ITP/THROMBOCYTOPENIA; S/P CHEMO TREATMENT/NOW STABLE ON PROMACTA (BASELINE PLTS NOW IN 200'S) Hx of sleep apnea S/P UPPP; NO DEVICE Hypertension Obesity Surgical History History of colonoscopy History of endoscopy History of eye surgery EYEBROW/EYELIDS LIFT SURGERY History of left knee surgery History of uvulopalatopharyngoplasty 2/2 SLEEP APNEA Family History Grandmother (Maternal) Family history of breast cancer Social History Smoking Status: Never smoker Cigarettes Per Day: QUIT 1975; Hx Alcohol Use: Yes (stopped drinking in July) Alcohol type: beer, wine and hard liquor Hx Substance Use: No Preferred Language: Thai Communication Ability: Effective Making Machine Catcher Required: No Beliefs That Will Affect Care: None marital status: Current Living Situation: Spouse Feels Safe at Home: Yes Assistive Devices: Walker Allergies Allergies Allergy/AdvReac Type Severity Reaction Status Date / Time lisinopril AdvReac Cough Verified 05/11/19 19:27 Home Meds Home Medications Medication Instructions Recorded Confirmed eltrombopag 25 mg tablet (Promacta) 50 mg PO DAILY 02/20/18 10/03/20 amoxicillin 500 mg capsule 2,000 mg PO UD 05/11/19 10/03/20 Results & Data (ED) Vital Signs Vital Signs - 24 hr 10/03/20 17:02 10/03/20 17:18 10/03/20 17:19 Temperature 37.1 C Temperature Source Oral Pulse Rate 140 H 122 H 113 H Pulse Rate from SpO2 Sensor 127 H 118 H Respiratory Rate 20 18 20 Respiratory Effort / Characteristics Respiratory Depth Normal Respiratory Pattern Blood Pressure 171/141 H 125/98 125/98 Blood Pressure [Left Arm] Blood Pressure Mean 151 107 107 Blood Pressure Mean [Left Arm] Blood Pressure Position [Left Arm] Pulse Oximetry 95 98 98 Oxygen Delivery Method Room Air Room Air Room Air Sepsis Recent Fever Within 48 Hours No Sepsis New/Unexplained Change in Mental Status No Sepsis Action Taken by Nursing No Action Required 10/03/20 17:30 10/03/20 17:53 10/03/20 18:00 Temperature Temperature Source Pulse Rate 122 H 122 H 129 H Pulse Rate from SpO2 Sensor 100 H 119 H 113 H Respiratory Rate 12 16 19 Respiratory Effort / Characteristics Respiratory Depth Respiratory Pattern Blood Pressure 140/103 H 140/114 H 131/105 H Blood Pressure [Left Arm] Blood Pressure Mean 115 122 113 Blood Pressure Mean [Left Arm] Blood Pressure Position [Left Arm] Pulse Oximetry 97 99 99 Oxygen Delivery Method Room Air Room Air Room Air Sepsis Recent Fever Within 48 Hours Sepsis New/Unexplained Change in Mental Status Sepsis Action Taken by Nursing 10/03/20 18:16 10/03/20 18:30 10/03/20 18:46 Temperature Temperature Source Pulse Rate 113 H 120 H 115 H Pulse Rate from SpO2 Sensor 100 H 116 H Respiratory Rate 16 17 17 Respiratory Effort / Characteristics Respiratory Depth Respiratory Pattern Blood Pressure 139/111 H 126/101 H 149/102 H Blood Pressure [Left Arm] Blood Pressure Mean 120 109 117 Blood Pressure Mean [Left Arm] Blood Pressure Position [Left Arm] Pulse Oximetry 96 98 99 Oxygen Delivery Method Room Air Room Air Room Air Sepsis Recent Fever Within 48 Hours Sepsis New/Unexplained Change in Mental Status Sepsis Action Taken by Nursing 10/03/20 19:00 10/03/20 19:15 10/03/20 19:30 Temperature Temperature Source Pulse Rate 122 H 121 H 113 H Pulse Rate from SpO2 Sensor 132 H 111 H 112 H Respiratory Rate 12 13 16 Respiratory Effort / Characteristics Non-Labored Respiratory Depth Normal Respiratory Pattern Regular Blood Pressure 131/100 140/85 133/98 Blood Pressure [Left Arm] 133/98 Blood Pressure Mean 110 103 109 Blood Pressure Mean [Left Arm] 109 Blood Pressure Position [Left Arm] Sitting Pulse Oximetry 97 99 98 Oxygen Delivery Method Room Air Room Air Room Air Sepsis Recent Fever Within 48 Hours Sepsis New/Unexplained Change in Mental Status Sepsis Action Taken by Nursing 10/03/20 19:32 10/03/20 19:40 10/03/20 19:50 Temperature Temperature Source Pulse Rate 118 H 108 H 112 H Pulse Rate from SpO2 Sensor 118 H 111 H Respiratory Rate 14 14 Respiratory Effort / Characteristics Respiratory Depth Respiratory Pattern Blood Pressure 133/98 129/90 134/103 H Blood Pressure [Left Arm] Blood Pressure Mean 103 113 Blood Pressure Mean [Left Arm] Blood Pressure Position [Left Arm] Pulse Oximetry 92 92 Oxygen Delivery Method Room Air Room Air Sepsis Recent Fever Within 48 Hours Sepsis New/Unexplained Change in Mental Status Sepsis Action Taken by Nursing 10/03/20 20:00 10/03/20 20:10 10/03/20 20:20 Temperature Temperature Source Pulse Rate 115 H 109 H 106 H Pulse Rate from SpO2 Sensor Respiratory Rate 24 14 16 Respiratory Effort / Characteristics Respiratory Depth Respiratory Pattern Blood Pressure 132/95 136/101 H 123/100 Blood Pressure [Left Arm] Blood Pressure Mean 107 112 107 Blood Pressure Mean [Left Arm] Blood Pressure Position [Left Arm] Pulse Oximetry 96 97 94 Oxygen Delivery Method Room Air Room Air Room Air Sepsis Recent Fever Within 48 Hours Sepsis New/Unexplained Change in Mental Status Sepsis Action Taken by Nursing 10/03/20 20:31 10/03/20 20:40 Temperature Temperature Source Pulse Rate 109 H 121 H Pulse Rate from SpO2 Sensor Respiratory Rate 22 17 Respiratory Effort / Characteristics Respiratory Depth Respiratory Pattern Blood Pressure 149/103 H 134/105 H Blood Pressure [Left Arm] Blood Pressure Mean 118 114 Blood Pressure Mean [Left Arm] Blood Pressure Position [Left Arm] Pulse Oximetry 94 95 Oxygen Delivery Method Room Air Room Air Sepsis Recent Fever Within 48 Hours Sepsis New/Unexplained Change in Mental Status Sepsis Action Taken by Nursing Laboratory Data Attestation: I reviewed the patient's lab results. Result diagrams: 10/03/20 17:15 08/27/21 17:15 Lab Results 10/03/20 10/03/20 10/03/20 Range/Units 17:15 17:15 17:15 WBC 13.37 H (4.8-10.8) K/uL RBC 4.84 (4.7-6.1) M/uL Hgb 15.3 (14.0-18.0) g/dL Hct 44.0 (42-52) % MCV 90.9 (80-100) fL MCH 31.6 (25-34) pg MCHC 34.8 (32-36) g/dL RDW Std Deviation 46.0 (36.4-46.3) fL RDW Coeff of Gregory 14.0 (11.5-14.5) % Plt Count 24 L* (130-400) K/uL Neutrophils % (Manual) 31.0 % Lymphocytes % (Manual) 62.8 % Monocytes % (Manual) 3.5 % Eosinophils % (Manual) 1.8 % Basophils % (Manual) 0.9 % Neutrophils # (Manual) 4.14 (1.4-6.5) K/uL Total Absolute Neuts 4.14 (1.4-6.5) K/uL Lymphocytes # (Manual) 8.40 H (1.2-3.4) K/uL Total Abs Lymphocytes 8.40 H (1.2-3.4) K/uL Monocytes # (Manual) 0.47 (0.11-0.59) K/uL Eosinophils # (Manual) 0.24 (0-0.5) K/uL Basophils # (Manual) 0.12 (0-0.2) K/uL PT 11.7 (9.0-12.0) Seconds INR 1.2 H (0.9-1.1) APTT 23.1 (21.0-31.0) Seconds PTT Ratio 0.9 Sodium 139 (136-145) mmol/L Potassium 4.0 (3.5-5.1) mmol/L Chloride 109 H (98-107) mmol/L Carbon Dioxide 26 (21-32) mmol/L Anion Gap 5.0 (3-11) BUN 18 (7-18) mg/dl Creatinine 0.89 (0.6-1.4) mg/dl Est Cr Clr Drug Dosing 88.5 ml/min Est GFR ( Amer) 100.4 ml/min Est GFR (Non-Af Amer) 86.6 ml/min BUN/Creatinine Ratio 20.5 H (10-20) Glucose 85 (70-99) mg/dl Calcium 9.2 (8.5-10.1) mg/dl Phosphorus 3.3 (2.5-4.9) mg/dl Magnesium 2.0 (1.8-2.4) mg/dl Total Bilirubin 0.7 (0.2-1) mg/dl AST 18 (15-37) U/L ALT 36 (12-78) U/L Alkaline Phosphatase 66 (45-117) U/L Troponin I < 0.015 (0-0.045) ng/ml Total Protein 7.2 (6.4-8.2) gm/dl Albumin 3.7 (3.4-5.0) gm/dl Globulin 3.5 (2.5-4.0) gm/dl Albumin/Globulin Ratio 1.0 (0.9-2) Anaplasma Smear See Comment Lyme Disease IgG Ab (Negative) Lyme Disease IgM Ab (Negative) COVID-19 Eval Order SARS-CoV-2 (PCR) (Negative) 10/03/20 10/03/20 10/03/20 Range/Units 17:15 17:15 17:55 WBC (4.8-10.8) K/uL RBC (4.7-6.1) M/uL Hgb (14.0-18.0) g/dL Hct (42-52) % MCV (80-100) fL MCH (25-34) pg MCHC (32-36) g/dL RDW Std Deviation (36.4-46.3) fL RDW Coeff of Gregory (11.5-14.5) % Plt Count (130-400) K/uL Neutrophils % (Manual) % Lymphocytes % (Manual) % Monocytes % (Manual) % Eosinophils % (Manual) % Basophils % (Manual) % Neutrophils # (Manual) (1.4-6.5) K/uL Total Absolute Neuts (1.4-6.5) K/uL Lymphocytes # (Manual) (1.2-3.4) K/uL Total Abs Lymphocytes (1.2-3.4) K/uL Monocytes # (Manual) (0.11-0.59) K/uL Eosinophils # (Manual) (0-0.5) K/uL Basophils # (Manual) (0-0.2) K/uL PT (9.0-12.0) Seconds INR (0.9-1.1) APTT (21.0-31.0) Seconds PTT Ratio Sodium (136-145) mmol/L Potassium (3.5-5.1) mmol/L Chloride (98-107) mmol/L Carbon Dioxide (21-32) mmol/L Anion Gap (3-11) BUN (7-18) mg/dl Creatinine (0.6-1.4) mg/dl Est Cr Clr Drug Dosing ml/min Est GFR ( Amer) ml/min Est GFR (Non-Af Amer) ml/min BUN/Creatinine Ratio (10-20) Glucose (70-99) mg/dl Calcium (8.5-10.1) mg/dl Phosphorus (2.5-4.9) mg/dl Magnesium (1.8-2.4) mg/dl Total Bilirubin (0.2-1) mg/dl AST (15-37) U/L ALT (12-78) U/L Alkaline Phosphatase (45-117) U/L Troponin I (0-0.045) ng/ml Total Protein (6.4-8.2) gm/dl Albumin (3.4-5.0) gm/dl Globulin (2.5-4.0) gm/dl Albumin/Globulin Ratio (0.9-2) Anaplasma Smear Cancelled Lyme Disease IgG Ab Negative (Negative) Lyme Disease IgM Ab Negative (Negative) COVID-19 Eval Order Covid19 at [facility] SARS-CoV-2 (PCR) (Negative) 10/03/20 Range/Units 17:55 WBC (4.8-10.8) K/uL RBC (4.7-6.1) M/uL Hgb (14.0-18.0) g/dL Hct (42-52) % MCV (80-100) fL MCH (25-34) pg MCHC (32-36) g/dL RDW Std Deviation (36.4-46.3) fL RDW Coeff of Gregory (11.5-14.5) % Plt Count (130-400) K/uL Neutrophils % (Manual) % Lymphocytes % (Manual) % Monocytes % (Manual) % Eosinophils % (Manual) % Basophils % (Manual) % Neutrophils # (Manual) (1.4-6.5) K/uL Total Absolute Neuts (1.4-6.5) K/uL Lymphocytes # (Manual) (1.2-3.4) K/uL Total Abs Lymphocytes (1.2-3.4) K/uL Monocytes # (Manual) (0.11-0.59) K/uL Eosinophils # (Manual) (0-0.5) K/uL Basophils # (Manual) (0-0.2) K/uL PT (9.0-12.0) Seconds INR (0.9-1.1) APTT (21.0-31.0) Seconds PTT Ratio Sodium (136-145) mmol/L Potassium (3.5-5.1) mmol/L Chloride (98-107) mmol/L Carbon Dioxide (21-32) mmol/L Anion Gap (3-11) BUN (7-18) mg/dl Creatinine (0.6-1.4) mg/dl Est Cr Clr Drug Dosing ml/min Est GFR ( Amer) ml/min Est GFR (Non-Af Amer) ml/min BUN/Creatinine Ratio (10-20) Glucose (70-99) mg/dl Calcium (8.5-10.1) mg/dl Phosphorus (2.5-4.9) mg/dl Magnesium (1.8-2.4) mg/dl Total Bilirubin (0.2-1) mg/dl AST (15-37) U/L ALT (12-78) U/L Alkaline Phosphatase (45-117) U/L Troponin I (0-0.045) ng/ml Total Protein (6.4-8.2) gm/dl Albumin (3.4-5.0) gm/dl Globulin (2.5-4.0) gm/dl Albumin/Globulin Ratio (0.9-2) Anaplasma Smear Lyme Disease IgG Ab (Negative) Lyme Disease IgM Ab (Negative) COVID-19 Eval Order SARS-CoV-2 (PCR) NEGATIVE (Negative) Administered Medications Discontinued Medications Sodium Chloride (Nss) 500 mls @ 999 mls/hr IV .Q31M ONE Stop: 10/03/20 18:09 Last Infusion: 10/03/20 18:25 Dose: 0 mls/hr Documented by: [id number] Admin: 10/03/20 17:54 Dose: 999 mls/hr Documented by: [id number] Metoprolol Tartrate (Metoprolol Tartrate 1 Mg/Ml Vial) 5 mg IV NOW STA Stop: 10/03/20 19:18 Last Admin: 10/03/20 19:32 Dose: 5 mg Documented by: [id number] Imaging Data Radiologist's Impression: Chest X-Ray 10/03/20 17:18 XR chest 1V portable HISTORY: Atypical Chest Pain COMPARISON: Chest 05/11/2019. FINDINGS: The lungs are clear. Cardiac silhouette is normal in size. No pleural effusions. No pneumothorax. IMPRESSION: No acute process. ACT 112: Negative or not required by law. Electronically signed by: Emmanuel Last M.D. 10/03/2020 5:42 PM Discharge Plan Visit Data Chief Complaint: Abnormal Labs/Diagnostic Testing Stated Complaint: Afib RVR/abnormal labs ED Provider: Ian Sharma Discharge Problem: Atrial fibrillation with rapid ventricular response, Hypertension, Chronic ITP (idiopathic thrombocytopenia) Forms Stand Alone Forms: [employer] Prescriptions Prescriptions: No Action Promacta 25 mg Tablet 50 mg PO DAILY RF: 0 amoxicillin 500 mg capsule 2,000 mg PO UD RF: 0 Referrals Referrals: Demetrius Edgar MD [Primary Care Provider] - Discharge Problem: Hypertension Qualifiers: Hypertension type: unspecified Qualified Code(s): I10 - Essential (primary) hypertension
[2020-10-03 18:54] LABS: ANC (manual) 4.14 K/uL (1.4-6.5); Basophils # (manual) 0.12 K/uL (0-0.2); Basophils % (manual) 0.9 %; Eosinophils # (manual) 0.24 K/uL (0-0.5); Eosinophils % (manual) 1.8 %; Lymphocytes % (manual) 62.8 %; Monocytes # (manual) 0.47 K/uL (0.11-0.59); Monocytes % (manual) 3.5 %; Neutrophils # (manual) 4.14 K/uL (1.4-6.5)
[2020-10-03 19:09] LABS: Lyme Ab IgG w/WB Rflx Negative (Negative); Lyme Ab IgM w/WB Rflx Negative (Negative)
[2020-10-03] MEDS ORDERED: METOPROLOL TARTRATE 1 MG/ML VIAL IV STA (19:17)
--- NOTE | 2020-10-03 21:02 | History & Physical Report ---
Date of Service October 03, 2020 Assessment & Plan (1) Atrial fibrillation with rapid ventricular response: Plan: Ramos Sanchez is a 70-year-old male past medical history significant for ITP and CLL; who presents from PCPs office for concerns of atrial fibrillation with rapid ventricular rate. A. fib with RVR: -EKG at outside office demonstrating A. fib with RVR rates into the 120s -On presentation to ED EKG demonstrating A. fib with heart rate in the 130s -Improved rate control with Lopressor in ED -Hold off on anticoagulation in the setting of ITP -[id number] score of 2 needing long-term anticoagulation may not be indicated -Lopressor 5 mg IV Q15M PRN HR>120 -In future following correction of ITP, could consider conversations regarding anticoagulation ITP: -Follows with [facility] [place] -Platelet count on admission 24k, no signs of active bleeding -Had been doing well until recently on Promacta 50 mg daily -Over the last several weeks has had decline in platelet count -Conversations at [facility] demonstrated potential for retrial of rituximab as this p reviously improved platelet counts for approximately 3 years CLL: -Follows with [facility] for [place]LL -Previously discussed utilization of ibrutinib -Has pending bone marrow chromosomal testing for confirmation of CLL clone Diet: Regular CODE STATUS: Full code DVT prophylaxis: Deferred due to ITP (2) Chronic ITP (idiopathic thrombocytopenia): (3) CLL (chronic lymphocytic leukemia): (4) Hypertension: History of Present Illness Primary Care Provider: Demetrius Edgar MD Ramos Sanchez is a 70-year-old male past medical history significant for ITP and CLL; who presents from PCPs office for concerns of atrial fibrillation with rapid ventricular rate. Over the last several months has had to reinitiate his Promacta dosing as his platelet counts have started to decline again. Over the last month has been having conversations about reinitiation of rituximab versus ibrutinib for testing either ITP or CLL. Previously had had remarkable success on control of his ITP following rituximab dosing. Additionally does have history of hypertension, however has not had to utilize his antihypertensive medications for quite some time, recently was on irbesartan and hydrochlorothiazide. Allergies Allergy/AdvReac Type Severity Reaction Status Date / Time lisinopril AdvReac Cough Verified 05/11/19 19:27 Home Medications Medication Instructions Recorded Confirmed Type eltrombopag 25 mg tablet (Promacta) 50 mg PO DAILY 02/20/18 10/03/20 History amoxicillin 500 mg capsule 2,000 mg PO UD 05/11/19 10/03/20 History Past Med/Surg History Medical History Acid reflux "CONTROLLED" CLL (chronic lymphocytic leukemia) History of ITP HX ITP/THROMBOCYTOPENIA; S/P CHEMO TREATMENT/NOW STABLE ON PROMACTA (BASELINE PLTS NOW IN 200'S) Hx of sleep apnea S/P UPPP; NO DEVICE Hypertension Obesity Surgical History History of colonoscopy History of endoscopy History of eye surgery EYEBROW/EYELIDS LIFT SURGERY History of left knee surgery History of uvulopalatopharyngoplasty / SLEEP APNEA Family History Grandmother (Maternal) Family history of breast cancer Social History Smoking Status: Never smoker Cigarettes Per Day: QUIT 1975; Hx Alcohol Use: No Hx Substance Use: No Preferred Language: [place] Communication Ability: Effective Admissions Director Required: No Beliefs That Will Affect Care: None marital status: Current Living Situation: Spouse Feels Safe at Home: Yes Assistive Devices: Hearing Aid - Bilateral Review of Systems Review of Systems: All systems reviewed & are unremarkable except as noted in HPI & below Physical Exam Constitutional: WD/WN, vitals as above Eyes: PERRL, conjunctivae normal, anicteric sclerae Respiratory: normal respiratory effort, lungs clear to auscultation Auscultation: no crackles, no rales, no rhonchi and no wheezes Cardiovascular: Rate/Rhythm: + irregularly irregular Heart Sounds: no gallop, no murmur and no cardiac rub Vessels: normal peripheral pulses; no JVD Extremities: no edema Gastrointestinal (Abdomen): Inspection/Auscultation: normal bowel sounds; abdomen not distended Percussion/Palpation: abdomen soft; abdomen nontender and no guarding Musculoskeletal: no cyanosis or clubbing, extremities motor strength 5/5 Skin: no rashes, warm and dry Neurologic: PERRL, EOMI, accommodation nl, no face palsy, no dysarthria CN's II-XI intact bilaterally and moves all extremities Psychiatric: Orientation: alert and oriented x 3 Results & Data Results & Data ([facility]) Vital Signs (Past 12 Hours) Vital Signs Temp Pulse Resp BP BP Pulse Ox 10/03/20 20:40 121 H 17 134/105 H 95 10/03/20 20:31 109 H 22 149/103 H 94 10/03/20 20:20 106 H 16 123/100 94 10/03/20 20:10 109 H 14 136/101 H 97 10/03/20 20:00 115 H 24 132/95 96 10/03/20 19:50 112 H 14 134/103 H 92 10/03/20 19:40 108 H 14 129/90 92 10/03/20 19:32 118 H 133/98 10/03/20 19:30 113 H 16 133/98 133/98 98 10/03/20 19:15 121 H 13 140/85 99 10/03/20 19:00 122 H 12 131/100 97 10/03/20 18:46 115 H 17 149/102 H 99 10/03/20 18:30 120 H 17 126/101 H 98 10/03/20 18:16 113 H 16 139/111 H 96 10/03/20 18:00 129 H 19 131/105 H 99 10/03/20 17:53 122 H 16 140/114 H 99 10/03/20 17:30 122 H 12 140/103 H 97 10/03/20 17:19 113 H 20 125/98 98 10/03/20 17:18 37.1 C 122 H 18 125/98 98 10/03/20 17:02 140 H 20 171/141 H 95 Laboratory Results 10/03/20 10/03/20 10/03/20 Range/Units 17:55 17:55 17:15 WBC (4.8-10.8) K/uL RBC (4.7-6.1) M/uL Hgb (14.0-18.0) g/dL Hct (42-52) % MCV (80-100) fL MCH (25-34) pg MCHC (32-36) g/dL RDW Std Deviation (36.4-46.3) fL RDW Coeff of Gregory (11.5-14.5) % Plt Count (130-400) K/uL Neutrophils % (Manual) % Lymphocytes % (Manual) % Monocytes % (Manual) % Eosinophils % (Manual) % Basophils % (Manual) % Neutrophils # (Manual) (1.4-6.5) K/uL Total Absolute Neuts (1.4-6.5) K/uL Lymphocytes # (Manual) (1.2-3.4) K/uL Total Abs Lymphocytes (1.2-3.4) K/uL Monocytes # (Manual) (0.11-0.59) K/uL Eosinophils # (Manual) (0-0.5) K/uL Basophils # (Manual) (0-0.2) K/uL PT (9.0-12.0) Seconds INR (0.9-1.1) APTT (21.0-31.0) Seconds PTT Ratio Sodium (136-145) mmol/L Potassium (3.5-5.1) mmol/L Chloride (98-107) mmol/L Carbon Dioxide (21-32) mmol/L Anion Gap (3-11) BUN (7-18) mg/dl Creatinine (0.6-1.4) mg/dl Est Cr Clr Drug Dosing ml/min Est GFR ( Amer) ml/min Est GFR (Non-Af Amer) ml/min BUN/Creatinine Ratio (10-20) Glucose (70-99) mg/dl Calcium (8.5-10.1) mg/dl Phosphorus (2.5-4.9) mg/dl Magnesium (1.8-2.4) mg/dl Total Bilirubin (0.2-1) mg/dl AST (15-37) U/L ALT (12-78) U/L Alkaline Phosphatase (45-117) U/L Troponin I (0-0.045) ng/ml Total Protein (6.4-8.2) gm/dl Albumin (3.4-5.0) gm/dl Globulin (2.5-4.0) gm/dl Albumin/Globulin Ratio (0.9-2) Anaplasma Smear A. phagocytophilum DNA Pending Lyme Disease IgG Ab (Negative) Lyme Disease IgM Ab (Negative) COVID-19 Eval Order Covid19 at [facility] SARS-CoV-2 (PCR) NEGATIVE (Negative) 10/03/20 10/03/20 10/03/20 Range/Units 17:15 17:15 17:15 WBC (4.8-10.8) K/uL RBC (4.7-6.1) M/uL Hgb (14.0-18.0) g/dL Hct (42-52) % MCV (80-100) fL MCH (25-34) pg MCHC (32-36) g/dL RDW Std Deviation (36.4-46.3) fL RDW Coeff of Gregory (11.5-14.5) % Plt Count (130-400) K/uL Neutrophils % (Manual) % Lymphocytes % (Manual) % Monocytes % (Manual) % Eosinophils % (Manual) % Basophils % (Manual) % Neutrophils # (Manual) (1.4-6.5) K/uL Total Absolute Neuts (1.4-6.5) K/uL Lymphocytes # (Manual) (1.2-3.4) K/uL Total Abs Lymphocytes (1.2-3.4) K/uL Monocytes # (Manual) (0.11-0.59) K/uL Eosinophils # (Manual) (0-0.5) K/uL Basophils # (Manual) (0-0.2) K/uL PT (9.0-12.0) Seconds INR (0.9-1.1) APTT (21.0-31.0) Seconds PTT Ratio Sodium 139 (136-145) mmol/L Potassium 4.0 (3.5-5.1) mmol/L Chloride 109 H (98-107) mmol/L Carbon Dioxide 26 (21-32) mmol/L Anion Gap 5.0 (3-11) BUN 18 (7-18) mg/dl Creatinine 0.89 (0.6-1.4) mg/dl Est Cr Clr Drug Dosing 88.5 ml/min Est GFR ( Amer) 100.4 ml/min Est GFR (Non-Af Amer) 86.6 ml/min BUN/Creatinine Ratio 20.5 H (10-20) Glucose 85 (70-99) mg/dl Calcium 9.2 (8.5-10.1) mg/dl Phosphorus 3.3 (2.5-4.9) mg/dl Magnesium 2.0 (1.8-2.4) mg/dl Total Bilirubin 0.7 (0.2-1) mg/dl AST 18 (15-37) U/L ALT 36 (12-78) U/L Alkaline Phosphatase 66 (45-117) U/L Troponin I < 0.015 (0-0.045) ng/ml Total Protein 7.2 (6.4-8.2) gm/dl Albumin 3.7 (3.4-5.0) gm/dl Globulin 3.5 (2.5-4.0) gm/dl Albumin/Globulin Ratio 1.0 (0.9-2) Anaplasma Smear Cancelled A. phagocytophilum DNA Lyme Disease IgG Ab Negative (Negative) Lyme Disease IgM Ab Negative (Negative) COVID-19 Eval Order SARS-CoV-2 (PCR) (Negative) 10/03/20 10/03/20 Range/Units 17:15 17:15 WBC 13.37 H (4.8-10.8) K/uL RBC 4.84 (4.7-6.1) M/uL Hgb 15.3 (14.0-18.0) g/dL Hct 44.0 (42-52) % MCV 90.9 (80-100) fL MCH 31.6 (25-34) pg MCHC 34.8 (32-36) g/dL RDW Std Deviation 46.0 (36.4-46.3) fL RDW Coeff of Gregory 14.0 (11.5-14.5) % Plt Count 24 L* (130-400) K/uL Neutrophils % (Manual) 31.0 % Lymphocytes % (Manual) 62.8 % Monocytes % (Manual) 3.5 % Eosinophils % (Manual) 1.8 % Basophils % (Manual) 0.9 % Neutrophils # (Manual) 4.14 (1.4-6.5) K/uL Total Absolute Neuts 4.14 (1.4-6.5) K/uL Lymphocytes # (Manual) 8.40 H (1.2-3.4) K/uL Total Abs Lymphocytes 8.40 H (1.2-3.4) K/uL Monocytes # (Manual) 0.47 (0.11-0.59) K/uL Eosinophils # (Manual) 0.24 (0-0.5) K/uL Basophils # (Manual) 0.12 (0-0.2) K/uL PT 11.7 (9.0-12.0) Seconds INR 1.2 H (0.9-1.1) APTT 23.1 (21.0-31.0) Seconds PTT Ratio 0.9 Sodium (136-145) mmol/L Potassium (3.5-5.1) mmol/L Chloride (98-107) mmol/L Carbon Dioxide (21-32) mmol/L Anion Gap (3-11) BUN (7-18) mg/dl Creatinine (0.6-1.4) mg/dl Est Cr Clr Drug Dosing ml/min Est GFR ( Amer) ml/min Est GFR (Non-Af Amer) ml/min BUN/Creatinine Ratio (10-20) Glucose (70-99) mg/dl Calcium (8.5-10.1) mg/dl Phosphorus (2.5-4.9) mg/dl Magnesium (1.8-2.4) mg/dl Total Bilirubin (0.2-1) mg/dl AST (15-37) U/L ALT (12-78) U/L Alkaline Phosphatase (45-117) U/L Troponin I (0-0.045) ng/ml Total Protein (6.4-8.2) gm/dl Albumin (3.4-5.0) gm/dl Globulin (2.5-4.0) gm/dl Albumin/Globulin Ratio (0.9-2) Anaplasma Smear See Comment A. phagocytophilum DNA Lyme Disease IgG Ab (Negative) Lyme Disease IgM Ab (Negative) COVID-19 Eval Order SARS-CoV-2 (PCR) (Negative) Diagnostic Findings Laboratory Results Impressions Chest X-Ray 10/03/20 17:18 XR chest 1V portable HISTORY: Atypical Chest Pain COMPARISON: Chest 05/11/2019. FINDINGS: The lungs are clear. Cardiac silhouette is normal in size. No pleural effusions. No pneumothorax. IMPRESSION: No acute process. ACT 112: Negative or not required by law. Electronically signed by: Emmanuel Last M.D. 10/03/2020 5:42 PM Medications Administered Home Medication List Medication Instructions Recorded eltrombopag 25 mg tablet (Promacta) 50 mg PO DAILY 02/20/18 amoxicillin 500 mg capsule 2,000 mg PO UD 05/11/19 Supervising Physician Co-Signing Physician Notes Attending addendum: I have physically seen this patient, have supervised the medical residents activities, and agree with the H&P unless as otherwise noted. Assessment and Plan: Atrial fibrillation with RVR- The patient will be admitted to telemetry for serial cardiac enzymes, serial EKG's, cardiac rhythm monitoring and a 2-D echocardiogram with Dopplers. Heart rate improved from 130s to low 100s with addition of Lopressor 5 mg IV in ED Not a candidate for anticoagulation due to present ITP Lopressor 5 mg IV every 4 hours as needed heart rate greater than 110 ITP- Placed 24 upon admission, was just 25 in the outpatient setting Treatment per [facility] [place], with no acute changes at this time CLL- Following with [facility] Remaining orders and notations as noted Resident Activity Tracking Resident Involvement: Resident Care Provided Care Provided: Adult Hospital Medicine
[2020-10-03] MEDS ORDERED: ACETAMINOPHEN 325 MG TAB PO PRN (22:43)
[2020-10-03] MEDS ORDERED: ALUMINUM/MAGNESIUM SUSP 30 ML UDC PO PRN (22:43)
[2020-10-03] MEDS ORDERED: ONDANSETRON INJ 2 MG/ML 2 ML VIAL IV PRN (22:43)
[2020-10-03] MEDS ORDERED: MAGNESIUM HYDROXIDE SUSP 30 ML UDC PO PRN (22:43)
[2020-10-03] MEDS ORDERED: POLYETHYLENE (MIRALAX) 17 GM PACK PO PRN (22:43)
[2020-10-03] MEDS ORDERED: NITROGLYCERIN SL 0.4 MG/TAB TAB SL PRN (22:43)
[2020-10-03] MEDS ORDERED: MoRPHine SULFATE 2 MG/ML CARP IV PRN (22:43)
[2020-10-03] MEDS ORDERED: METOPROLOL TARTRATE 1 MG/ML VIAL IV PRN (22:43)
[2020-10-04 07:29] LABS: BUN Creatinine Ratio 21.5 (10-20); Calcium 8.9 mg/dl (8.5-10.1); Creatinine Clr Calc Pharmacy 109.5 ml/min; Est GFR (African American) 108.3 ml/min; Est GFR (Non-African American) 93.5 ml/min; Potassium 4.1 mmol/L (3.5-5.1)
[2020-10-04 07:33] LABS: Basophils # (auto) 0.05 K/uL (0-0.2); Basophils % (auto) 0.4 %; Eosinophils # (auto) 0.24 K/uL (0-0.5); Eosinophils % (auto) 2.1 %; Hematocrit (blood only) 40.7 % (42-52); Hemoglobin 13.9 g/dL (14.0-18.0); Immature Granulocytes # (auto) 0.04 K/uL (0.00-0.02); Immature Granulocytes % (auto) 0.3 %; Lymphocytes % (auto) 41.2 %; Mean Corpuscular Hemoglobin 31.4 pg (25-34); Mean Corpuscular Hgb Conc 34.2 g/dL (32-36); Mean Corpuscular Volume 91.9 fL (80-100); Monocytes # (auto) 0.46 K/uL (0.11-0.59); Neutrophils # (auto) 6.05 K/uL (1.4-6.5); Platelet Count 17 K/uL (130-400); Platelet Estimate SIGNIFIC DECREASED (Normal); RDW Coefficient of Variation 14.1 % (11.5-14.5); RDW Standard Deviation 47.1 fL (36.4-46.3); Red Blood Count 4.43 M/uL (4.7-6.1); White Blood Count 11.64 K/uL (4.8-10.8)
[2020-10-04] MEDS ORDERED: ASPIRIN 81 MG ECTAB PO SCH (09:00)
[2020-10-04] MEDS ORDERED: METOPROLOL TARTRATE 25 MG TAB PO SCH (09:00)
[2020-10-04] MEDS: ELTROMBOPAG 25 MG PO SCH (09:16)
--- NOTE | 2020-10-04 15:57 | Hospitalist Progress Note ---
Date of Service October 04, 2020 Assessment & Plan (1) Atrial fibrillation with rapid ventricular response: Plan: Ramos Sanchez is a 70-year-old male past medical history significant for ITP and CLL; who presents from PCPs office for concerns of atrial fibrillation with rapid ventricular rate. A. fib with RVR: -On presentation to ED EKG demonstrating A. fib with heart rate in the 130s -Today he received 25 mg metoprolol tartrate in the morning with no improvement of rate, increased to 50 mg. -Echo today, results pending. TSH is WNL -[id number] score of 1 indicating long-term anticoagulation may not be indicated, has history of htn, but not currently hypertensive. -Lopressor 5 mg IV Q15M PRN HR>120 -Won't be a candidate for cardioversion since unable to anticoagulate due to low platelet count. follow Snoring: -STOPBANG score of 3-4 indicating high risk of sleep apnea, consider sleep study in outpatient setting. ITP: -Follows with [facility] for chronic ITP -Platelet count on admission 24k, now 17k, no signs of active bleeding -Had been doing well until recently on Promacta 50 mg daily -Over the last several weeks has had decline in platelet count -Conversations at [facility] demonstrated potential for retrial of rituximab as this previously improved platelet counts for approximately 3 years CLL: -Follows with [facility] for CLL -Previously discussed utilization of ibrutinib -Has pending bone marrow chromosomal testing for confirmation of CLL clone Diet: Regular CODE STATUS: Full code DVT prophylaxis: Deferred due to ITP (2) Chronic ITP (idiopathic thrombocytopenia): (3) CLL (chronic lymphocytic leukemia): Admission and Anticipated Discharge Date Admission Date: October 03, 2020 Supervising Physician Co-Signing Physician Notes Resident Physician Supervision Note: I independently interviewed and examined the patient and verified the cruz history and physical, reviewed labs and image studies and agree with resident Dr. Stone findings and care plan. Subjective Patient was seen today while he was seated in his chair eating breakfast this morning. Patient states he is feeling much improved since last night after being in the ER after receiving metoprolol. Patient reports that for the past week he has been feeling fatigued and has been having some episodes of shortness of breath. He had gone to for an appointment where she recommended that he go to the ER after recognizing an irregular heart rhythm on exam. Today patient feels much improved and has the only complaint of some mild joint pain. Patient has a past medical history of ITP and CLL for which both are followed by [facility]. Prior to the past month his platelet count has been normal, but recently his platelet count has gone down into the low 20s. Patient denies any past history of CAD, Afib, or CHF. Patient reports a past history of sleep apnea in the s where he had a uvulectomy which resolved his sleep apnea. Since this time he has never had a sleep study or has required a CPAP. He denies any chest pain, shortness of breath, fever, chills, nausea, vomiting, palpitations, hematuria, or hematochezia. Patient reports that a nurse tried to give him aspirin this morning and he denied it because his oncologist told him under no circumstances is he to take aspirin due to his low platelet count. Patient has no other complaints at this time. Review of Systems Review of Systems: All systems reviewed & are unremarkable except as noted in HPI & below Physical Exam Constitutional: WD/WN, vitals as above Eyes: + anicteric sclerae Neck: trachea midline, no thyromegaly Respiratory: normal respiratory effort, lungs clear to auscultation Cardiovascular: Rate/Rhythm: + tachycardic and + irregularly irregular Extremities: no edema Gastrointestinal (Abdomen): normal bowel sounds, soft, nontender, no hepatosplenomegaly Skin: no rashes, warm and dry Psychiatric: A+Ox3, euthymic affect Orientation: cooperative Eye Contact: good eye contact Results & Data Results & Data ([facility]) Vital Signs (Past 12 Hours) Vital Signs Temp Pulse Pulse Pulse Resp BP BP 10/04/20 15:16 106 H 10/04/20 11:13 36.7 C 112 H 18 136/82 10/04/20 08:00 36.5 C 113 H 108 H 18 134/83 10/04/20 04:25 36.7 C 115 H 16 131/90 Pulse Ox 10/04/20 15:16 10/04/20 11:13 98 10/04/20 08:00 97 10/04/20 04:25 98 Resident Activity Tracking Resident Involvement: Resident Care Provided Care Provided: [facility] Medicine
[2020-10-04] MEDS: METOPROLOL TARTRATE 50 MG TAB PO SCH (20:12)
--- NOTE | 2020-10-04 22:07 | XCELERA ---
[id number]
--- NOTE | 2020-10-05 05:35 | Billing Data ---
Date of Service October 05, 2020 Coding Level of Care Code 03138 Initial Inpt Care Lvl 3
[2020-10-05] MEDS: METOPROLOL TARTRATE 50 MG TAB PO SCH (06:20)
[2020-10-05] MEDS: ELTROMBOPAG 25 MG PO SCH (06:21)
--- NOTE | 2020-10-05 07:23 | Electrocardiogram Report ---
Test Reason : Blood Pressure : / mmHG Vent. Rate : 131 BPM Atrial Rate : 147 BPM P-R Int : 144 ms QRS Dur : 094 ms QT Int : 312 ms P-R-T Axes : 085 -14 001 degrees QTc Int : 460 ms Atrial fibrillation with rapid ventricular response with premature ventricular or aberrantly conducte d complexes When compared with ECG of 11-MAY-2019 18:27, Atrial fibrillation has replaced Sinus rhythm Confirmed by Jozef Castillo ([id number]) on 10/05/2020 7:22:38 AM Referred By: Demetrius Edgar Confirmed By:Jozef Castillo
[2020-10-05 08:14] LABS: BUN Creatinine Ratio 18.4 (10-20); Calcium 9.2 mg/dl (8.5-10.1); Creatinine Clr Calc Pharmacy 94.3 ml/min; Est GFR (African American) 101.8 ml/min; Est GFR (Non-African American) 87.9 ml/min; Potassium 4.4 mmol/L (3.5-5.1)
[2020-10-05 08:21] LABS: Hematocrit (blood only) 44.6 % (42-52); Hemoglobin 15.2 g/dL (14.0-18.0); Mean Corpuscular Hemoglobin 31.6 pg (25-34); Mean Corpuscular Hgb Conc 34.1 g/dL (32-36); Mean Corpuscular Volume 92.7 fL (80-100); Platelet Count 13 K/uL (130-400); RDW Coefficient of Variation 14.1 % (11.5-14.5); RDW Standard Deviation 47.5 fL (36.4-46.3); Red Blood Count 4.81 M/uL (4.7-6.1); White Blood Count 13.55 K/uL (4.8-10.8)
[2020-10-05 08:50] LABS: Basophils # (auto) 0.07 K/uL (0-0.2); Basophils % (auto) 0.5 %; Eosinophils # (auto) 0.25 K/uL (0-0.5); Eosinophils % (auto) 1.8 %; Immature Granulocytes # (auto) 0.02 K/uL (0.00-0.02); Immature Granulocytes % (auto) 0.1 %; Lymphocytes # (auto) 5.71 K/uL (1.2-3.4); Lymphocytes % (auto) 42.1 %; Monocytes # (auto) 0.59 K/uL (0.11-0.59); Monocytes % (auto) 4.4 %; Neutrophils # (auto) 6.91 K/uL (1.4-6.5); Neutrophils % (auto) 51.1 %; Platelet Estimate SIGNIFIC DECREASED (Normal); Smudge Cells Present
[2020-10-05] MEDS: METOPROLOL TARTRATE 100 MG TAB PO SCH ×2 (10:57→19:29)
--- NOTE | 2020-10-05 14:05 | Hospitalist Progress Note ---
Date of Service October 05, 2020 Assessment & Plan (1) Atrial fibrillation with rapid ventricular response: Plan: Ramos Sanchez is a 70-year-old male past medical history significant for ITP and CLL; who presents from PCPs office for concerns of atrial fibrillation with rapid ventricular rate. A. fib with RVR: -Yesterday pt had rate in the 100-120 range. -Patient did not improve overnight with 50 mg of metoprolol tartrate. Increased dose to 100 mg twice daily. -Echo yesterday was within normal limits. TSH is within normal limits. -[id number] score of 1 indicating long-term anticoagulation may not be indicated, has history of htn, but not currently hypertensive. -Unable to cardiovert due to inability to anticoagulate. continue with rate control. Snoring: -STOPBANG score of 3-4 indicating high risk of sleep apnea, consider sleep study in outpatient setting ITP: -Follows with [facility] for chronic ITP -Platelet count on admission 24k, now 13k, no signs of active bleeding -Had been doing well until recently on Promacta 50 mg daily -Over the last several weeks has had decline in platelet count -Conversations at [facility] demonstrated potential for retrial of rituximab as this previously improved platelet counts for approximately 3 years -Oncology consult- spoke to Dr. Hickey -Began 1 g/kg IVIG qd x 2 doses. -Daily CBC. -Sent tiger text to his [facility] oncologist about current plan. Possible tick born illness: -Pt has recent camping history with complaints of joint pain and fatigue. Started doxycycline for suspected acute Lyme disease. CLL: -Follows with [facility] for CLL -Previously discussed utilization of ibrutinib -Has pending bone marrow chromosomal testing for confirmation of CLL clone Diet: Regular CODE STATUS: Full code DVT prophylaxis: Deferred due to ITP (2) Chronic ITP (idiopathic thrombocytopenia): (3) CLL (chronic lymphocytic leukemia): Admission and Anticipated Discharge Date Admission Date: October 04, 2020 Supervising Physician Co-Signing Physician Notes Resident Physician Supervision Note: I independently interviewed and examined the patient and verified the cruz history and physical, reviewed labs and image studies and agree with resident Dr. Stone findings and care plan. Subjective Patient was seen while he was resting in chair this morning preparing his breakfast. Patient states that he is overall doing well and has no complaints that he would like to go over. He reports no change in his symptoms over the past 24 hours for which she reported none. He has been in A. fib with rates in the 100s to 110s for the past 12 hours. He denies feeling palpitations, chest pain, or shortness of breath during this timeframe. He had just taken his Promacta a few minutes before I arrived in the room; he is waiting to eat breakfast as he has to wait half an hour after taking his medication. It was explained to him at this time that his platelet count is down to 13 K which is a reduction from 17 K yesterday. It was explained to him that we would be contacting our on-call oncologist, Dr. Hikcey, and asking for his recommendations at this time. Patient denies hematuria, hematochezia, or epistaxis at this time. Patient has no other complaints at this time. Review of Systems Review of Systems: All systems reviewed & are unremarkable except as noted in HPI & below Physical Exam Constitutional: WD/WN, vitals as above Eyes: PERRL, conjunctivae normal, anicteric sclerae Neck: trachea midline, no thyromegaly Respiratory: normal respiratory effort, lungs clear to auscultation Cardiovascular: Rate/Rhythm: + tachycardic and + irregularly irregular Extremities: no edema Gastrointestinal (Abdomen): normal bowel sounds, soft, nontender, no hepatosplenomegaly Musculoskeletal: no cyanosis or clubbing, extremities motor strength 5/5 Skin: no rashes, warm and dry Neurologic: moves all extremities Psychiatric: A+Ox3, euthymic affect Results & Data Results & Data ([facility]) Vital Signs (Past 12 Hours) Vital Signs Temp Pulse Pulse Resp BP BP Pulse Ox 10/05/20 11:10 36.6 C 108 H 16 135/93 97 10/05/20 08:22 36.7 C 103 H 18 134/89 97 10/05/20 07:33 122 H 10/05/20 02:33 36.6 C 100 H 18 121/87 98 Resident Activity Tracking Resident Involvement: Resident Care Provided Care Provided: Adult Hospital Medicine
[2020-10-05] MEDS ORDERED: IMMUNE GLOBULIN (HUMAN) SOLN IV SCH (14:30)
[2020-10-05] MEDS: IMMUNE GLOBULIN(HUMAN) 10% 100 ML IV SCH ×7 (15:42→23:33)
[2020-10-05] MEDS: DOXYCYCLINE HYCLATE 100 MG in DEXTROSE 5% 100 ML IV SCH (22:04)
[2020-10-06] MEDS ORDERED: METOPROLOL SUCC 50MG EXT REL TAB PO SCH
[2020-10-06] MEDS: IMMUNE GLOBULIN(HUMAN) 10% 100 ML IV SCH ×7 (01:52→18:40)
[2020-10-06] MEDS: ELTROMBOPAG 25 MG PO SCH (05:48)
[2020-10-06] MEDS: METOPROLOL TARTRATE 100 MG TAB PO SCH (07:30)
[2020-10-06 07:57] LABS: Hematocrit (blood only) 44.3 % (42-52); Mean Corpuscular Hemoglobin 31.4 pg (25-34); Mean Corpuscular Hgb Conc 33.9 g/dL (32-36); Mean Corpuscular Volume 92.7 fL (80-100); Mean Platelet Volume 14.3 fL (7.4-10.4); Platelet Count 49 K/uL (130-400); Platelet Estimate Decreased (Normal); RDW Standard Deviation 47.4 fL (36.4-46.3); Red Blood Count 4.78 M/uL (4.7-6.1); White Blood Count 9.41 K/uL (4.8-10.8)
[2020-10-06 08:09] LABS: BUN Creatinine Ratio 16.7 (10-20); Calcium 9.1 mg/dl (8.5-10.1); Creatinine Clr Calc Pharmacy 79.8 ml/min; Est GFR (Non-African American) 75.9 ml/min; Potassium 4.1 mmol/L (3.5-5.1)
[2020-10-06] MEDS: DOXYCYCLINE HYCLATE 100 MG in DEXTROSE 5% 100 ML IV SCH (08:16)
[2020-10-06] MEDS ORDERED: METOPROLOL TARTRATE 100 MG TAB PO ONE (08:45)
[2020-10-06] MEDS ORDERED: CETIRIZINE HCL 10 MG TABLET PO ONE (10:46)
--- NOTE | 2020-10-06 13:06 | Discharge Summary ---
Date of Service October 06, 2020 Admission HPI Per Admitting Provider Ramos Sanchez is a 70-year-old male past medical history significant for ITP and CLL; who presents from PCPs office for concerns of atrial fibrillation with rapid ventricular rate. Over the last several months has had to reinitiate his Promacta dosing as his platelet counts have started to decline again. Over the last month has been having conversations about reinitiation of rituximab versus ibrutinib for testing either ITP or CLL. Previously had had remarkable success on control of his ITP following rituximab dosing. Additionally does have history of hypertension, however has not had to utilize his antihypertensive medications for quite some time, recently was on irbesartan and hydrochlorothiazide. Admission Exam Per Admitting Provider Constitutional: WD/WN, vitals as above Eyes: PERRL, conjunctivae normal, anicteric sclerae Respiratory: normal respiratory effort, lungs clear to auscultation Auscultation: no crackles, no rales, no rhonchi and no wheezes Cardiovascular: Rate/Rhythm: + irregularly irregular Heart Sounds: no gallop, no murmur and no cardiac rub Vessels: normal peripheral pulses; no JVD Extremities: no edema Gastrointestinal (Abdomen): Inspection/Auscultation: normal bowel sounds; abdomen not distended Percussion/Palpation: abdomen soft; abdomen nontender and no guarding Musculoskeletal: no cyanosis or clubbing, extremities motor strength 5/5 Skin: no rashes, warm and dry Neurologic: PERRL, EOMI, accommodation nl, no face palsy, no dysarthria CN's II-XI intact bilaterally and moves all extremities Psychiatric: Orientation: alert and oriented x 3 Principal Diagnosis Atrial Fibrillation with rapid ventricular response, ITP Discharge Exam Constitutional WD/WN, vitals as above Eyes + anicteric sclerae Neck trachea midline, no thyromegaly Respiratory normal respiratory effort, lungs clear to auscultation Cardiovascular Rate/Rhythm: + tachycardic and + irregularly irregular Gastrointestinal (Abdomen) normal bowel sounds, soft, nontender, no hepatosplenomegaly Skin no rashes, warm and dry Psychiatric A+Ox3, euthymic affect Discharge Data Allergies Allergy/AdvReac Type Severity Reaction Status Date / Time lisinopril AdvReac Cough Verified 05/11/19 19:27 Consultations 10/03/20 19:18 ED Decision to Admit Stat Hospital Course (1) Atrial fibrillation with rapid ventricular response: Ramos Snachez is a 70-year-old male past medical history significant for ITP and CLL; who presents from PCPs office for concerns of atrial fibrillation with rapid ventricular rate. A. fib with RVR: -Patient having rates between 90 and 120 consistently with the lowest being 73 highest being 150. Currently asymptomatic. -Patient currently on 200 mg metoprolol tartrate twice daily switched to metoprolol succinate 200 mg p.o. daily post discharge. -Echo 10/04 was within normal limits. TSH is within normal limits. -Hold off on anticoagulation in the setting of ITP -[id number] score of 1 indicating long-term anticoagulation may not be indicated, has history of htn, but not currently hypertensive. -Lopressor 5 mg IV Q15M PRN HR>120 -STOPBANG score of 3-4 indicating high risk of sleep apnea, consider sleep study in outpatient setting. -Follow-up with Dr. Edgar within the next week. ITP: -Follows with [facility] for chronic ITP -Platelet count on admission 24k, now 49k on discharge. -Received one dose of IVIG during admission to the hospital. -Sent tiger text to his [place] oncologist about current plan. -Had been doing well until recently on Promacta 50 mg daily -Over the last several weeks has had decline in platelet count -Conversations at [facility] demonstrated potential for retrial of rituximab as this previously improved platelet counts for approximately 3 years -Follow-up with Dr. Logan within the next week. CLL: -Follows with [facility] for CLL -Previously discussed utilization of ibrutinib -Has pending bone marrow chromosomal testing for confirmation of CLL clone Diet: Regular CODE STATUS: Full code DVT prophylaxis: Deferred due to ITP (2) Chronic ITP (idiopathic thrombocytopenia): (3) CLL (chronic lymphocytic leukemia): Total Time Total Time Spent Total Time Spent (In Minutes): <30 Discharge Plan Discharge Items Patient Disposition: Home - Self-Care Reason For Visit: AFIB WITH RVR ITP Discharge Diagnosis: Atrial Fibrillation with Rapid Ventricular Response Activity: Per Instructions section Non-emergency contact: Primary Care Provider and Oncologist Call non-emergency contact if: you have any medication questions and your symptoms worsen Follow-up/Referrals: Minh Logan [Staff Physician] - Demetrius Edgar MD [Primary Care Provider] - Diet: Regular Addtl Attending Provider Instructions: You were seen in the hospital for atrial fibrillation with rapid ventricular response for which you have been given metoprolol for rate control. While you were here, due to your ITP, your platelet count dropped to as low as 13,000 and were given IV immunoglobulin which improved your platelet count to 49,000. As you have a history of recent camping/outdoor activity and muscle aches and joint pains that are more so than your baseline, you are being treated for tickborne disease with doxycycline for 14 days total. 1 days worth of doxycycline was given to you in the hospital, so 13 days worth was sent to your pharmacy. Please follow-up with your primary care provider and your heme/oncologist within the next week to discuss the next steps of your care. It was a pleasure to participate in your care and we wish you the best in your recovery. Pending Studies at Discharge: Yes Studies:: Anaplasmosis Stand-Alone Forms: My [facility] [employer], Smoking Cessation Medications and DC Order Prescriptions: New metoprolol succinate 200 mg tablet extended release 24 hr 200 mg PO DAILY Qty: 30 RF: 2 doxycycline hyclate 100 mg tablet 100 mg PO BID 13 Days Qty: 26 RF: 0 Continued Promacta 25 mg Tablet 50 mg PO DAILY RF: 0 Discontinued amoxicillin 500 mg capsule 2,000 mg PO UD RF: 0 Discharge Orders: Discharge Order (Routine); Ordered 10/06/20 Ordered By: Stephen May/Other Patient Handouts: Thrombocytopenia, Understanding Atrial Fibrillation Admission Data Admit Date/Time: 10/04/20 17:26 Attending Provider: Juan Carlos Campos Admit Provider: Orestes Rosales Primary Care Provider: Demetrius Edgar Other Providers: Geremias Lane ; Diane Lazo ; Thierno Hickey V. Other Interventions: Discharge Summary Assessment (RN) Last Done: 10/06/20 14:12 Supervising Physician Co-Signing Physician Notes I personally examined the patient and verified all cruz points of history and exam, discussed case, and agree with decision making with Dr Stone. Feeling better, feeling up to going home. Answered all questions to the best my ability and to his satisfaction. Vitals noted, in general he is awake and alert pleasant no distress. HEENT normocephalic atraumatic mucous membranes moist. Breathing unlabored no accessory muscle use good effort. Cardio shows rate controlled to be improving. New onset atrial fibrillationrate control with metoprolol, currently asymptomatic and rate control improvingsafe for home with close outpatient follow-up. 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 For now home on metoprolol. ITPhis worsening thrombocytopenia is probably ITP and potentially tickborne illness. Given that he noted his platelet counts were starting to decline back in July, it seems unlikely it was purely a tickborne infection, but given that it dropped lower than he has been since initially diagnosed, it is also quite probable that a tickborne illness is at play as well. Received IVIG in the hospital, will have ongoing close outpatient hematology follow-up, already gets biweekly CBC checks. Presumed tickborne illnessmyalgias, endemic area, high rate of false negative testingsymptoms improved on doxycycline. See above otherwise. Stable for home. Otherwise as above. Resident Activity Tracking Resident Involvement: Resident Care Provided Care Provided: Adult Hospital Medicine
[2020-10-06] MEDS ORDERED: METOPROLOL TARTRATE 100 MG TAB PO STA (16:46)
--- NOTE | 2020-10-06 17:33 | Billing Data ---
Date of Service October 06, 2020 Coding Level of Care Code D/C DAY MANAGEMENT <30 MINS
[2020-10-06] MEDS ORDERED: METOPROLOL TARTRATE 100 MG TAB PO SCH (21:00)
--- NOTE | 2020-10-27 06:55 | Coding Query ---
CODING QUERY To promote full compliance with coding requirements relating to patient care, provider participation is requested in all cases of certified coder uncertainty. Please assist us with the question(s) below: Coding Question(s): Discharge summary states patient with suspected tickborne illness. Patient had diffuse myalgia and arthralgia upon admission with recent history of outdoor activity/camping. Patient was treated with Doxycycline. Please document the tickborn illness below: Physician's Response(s): most suspicious for anaplasmosis Thank you Allan Hdz Principal Diagnosis: "that condition established after study, to be chiefly responsible for occasioning the admission of the patient to the hospital for care." Co-Existing Principal Diagnosis: "when two or more diagnoses equally meet the criteria for principal diagnosis as determined by the circumstances of admission, diagnostic work up, and/or therapy provided, and the Alphabetic Index, Tabular List, or another coding guideline does not provide sequencing direction, any one of the diagnoses may be sequenced first." "When the physician has documented what appears to be a current diagnosis in the body of the record, but has not included the diagnosis in the final diagnostic statement, the physician should be asked whether the diagnosis should be added." (Source Coding [facility] 2 QTR90. p3-4) GRABIEL
== END 2020-10-06 18:38 | disposition home or self-care (01) | DRG 309 ==
LOC: 2W 16:55 → ED 16:55 → SUATTDRO 20:58 → 2W 22:10 → SUATTDRO 10-04 17:26

== ENCOUNTER 2020-10-17 18:16 | Observation (INO) ==
[2020-10-17] MEDS ORDERED: ASPIRIN CHEW 324 MG PO STA (18:37)
--- NOTE | 2020-10-17 18:47 | Emergency Department Note ---
Impression & Plan Chest pain, Atrial fibrillation ED Provider Note NAME: SARAH TEE AGE: 70 SEX: M : 1950 ARRIVES VIA: Walk-In INFORMANT: Patient, ED PROVIDER(S): José Luis Silver DO CHIEF COMPLAINT: Chest pain HPI: The patient is a 70-year-old male who presented to the emergency department with his significant other for an evaluation of chest pain. The patient has a history of atrial fibrillation. He was recently diagnosed with atrial fibrillation. At this time he is not a candidate for anticoagulation because of his history of ITP. He was seen by his primary oncologist at [facility]. They are currently still trying to come up with a treatment plan for his atrial fibrillation which would include anticoagulation. The patient started having chest pain throughout the day. The pain was intermittent and sharp. He denies having any difficulty breathing. He denies having any chest pain at this time. The patient states he has been very compliant with his outpatient medications. He denies having any fever. He is currently taking doxycycline for presumed tickborne illness which was diagnosed in our emergency department recently. The patient got been seen by his primary care physician. ROS: See above HPI for pertinent positives & negatives. A total of 10 systems r eviewed and were otherwise negative. PAST MEDICAL HISTORY: See Below PAST SURGICAL HISTORY: See Below FAMILY HISTORY: See Below SOCIAL HISTORY: See Below HOME MEDICATIONS: See Below ALLERGIES: See Below VITALS: See Below PHYSICAL EXAMINATION: GENERAL: Patient is awake alert in no acute distress patient is resting comfortably and showing no signs of anxiety EYES: The conjunctivae are clear. The pupils are round and reactive. EARS, NOSE, MOUTH AND THROAT: The nose is without any evidence of any deformity. Mucous membranes are moist. Tongue is midline. NECK: The neck is nontender and supple. RESPIRATORY: Normal respiratory effort is noted there is no evidence of wheezing rhonchi or rales CARDIOVASCULAR: Tachycardic and regular heart sounds were noted to auscultation. There is no definite murmur. GASTROINTESTINAL: The abdomen is soft. Abdomen is nontender. MUSCULOSKELETAL/EXTREMITIES: There is no evidence of gross deformity full range of motion is noted in the hips and shoulders. SKIN: There is no obvious evidence of any rash. There are no petechiae, pallor or cyanosis noted. NEUROLOGIC: Patient is awake alert and oriented x3. MEDICAL DECISION MAKING: The patient is a 70-year-old male who presented to the emergency department for an evaluation of chest pain. The patient's chest pain was not traditional cardiac in nature. It was nonexertional. Given the patient's age and risk factors further laboratory and radiographic studies were obtained to rule stratify the patient. The patient was found to have nonspecific EKG changes but a negative troponin. Given his description of chest pain and his other comorbidities I do feel he may be at high risk may require an inpatient work-up for his chest pain. I discussed the patient's laboratory and radiographic studies with him. I also discussed the limitations of the emergency department work-up for chest pain with him. Ultimately I did discuss his case with the on- call [facility] group. They have agreed to evaluate the patient in the emergency department for further management and disposition. The patient was agreeable to this plan. The patient was not given aspirin due to his history of platelet disorder. Triage Nursing notes reviewed. Prior medical records reviewed Vital Signs: reviewed and remarkable for tachycardia. Differential diagnosis: Cardiac ischemia, aortic dissection, pulmonary embolism, pneumothorax, pneumonia, pericarditis, myocarditis, esophageal rupture, GERD, cholecystitis, pancreatitis, musculoskeletal, as well as other pathologies. ER treatment provided: See below Diagnostics interpreted by me: ECG: EKG was obtained in the emergency department. My interpretation is atrial fibrillation at 113 bpm. PVCs were noted. Diffuse ST segment abnormalities were noted. This was compared to a tracing from October 032020. No significant changes were noted. Cardiac Monitoring: An order was placed for continuous cardiac monitoring. The monitor shows a rate of 102 bpm with atrial fibrillation rhythm. Laboratory studies: As stated above and show below. Imaging studies: See below Consultation(s): I discussed this case with Dr. Carr who is on-call for the [facility] hospitalist group. They will evaluate the patient in the emergency department for further management and disposition. 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 SLEEP APNEA Family History Grandmother (Maternal) Family history of breast cancer Social History Smoking Status: Former smoker Tobacco Type: Cigarettes Cigarettes Per Day: QUIT 1975; Hx Alcohol Use: No Hx Substance Use: No Preferred Language: Greek Communication Ability: Effective 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 Greek 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 Required: No Beliefs That Will Affect Care: None marital status: Current Living Situation: Spouse Feels Safe at Home: Yes Assistive Devices: Glasses Allergies Allergies Allergy/AdvReac Type Severity Reaction Status Date / Time lisinopril AdvReac Cough Verified 10/17/20 20:40 Home Meds Home Medications Medication Instructions Recorded Confirmed eltrombopag 25 mg tablet (Promacta) 50 mg PO DAILY 02/20/18 10/17/20 digoxin 125 mcg (0.125 mg) tablet 125 mcg PO DAILY 10/17/20 10/17/20 doxycycline hyclate 100 mg tablet 100 mg PO BID 10/17/20 10/17/20 metoprolol succinate 100 mg 100 mg PO DAILY 10/17/20 10/17/20 tablet,extended release 24 hr Results & Data (ED) Vital Signs Vital Signs - 24 hr 10/17/20 18:19 10/17/20 19:05 10/17/20 20:29 Temperature 36.6 C Temperature Source Oral Pulse Rate 100 H Pulse Rate [Right] 106 H 112 H Pulse Rhythm Regular Pulse Rhythm [Right] Irregular Pulse Strength Normal Pulse Strength [Right] Normal Respiratory Rate 20 16 16 Respiratory Effort / Characteristics Non-Labored Spontaneous Non-Labored Spontaneous Non-Labored Spontaneous Respiratory Depth Normal Normal Normal Respiratory Pattern Regular Blood Pressure 137/85 Blood Pressure [Right Arm] 136/90 154/85 H Blood Pressure Mean 102 Blood Pressure Mean [Right Arm] 105 108 Blood Pressure Position [Right Arm] Sitting Pulse Oximetry 99 98 96 Oxygen Delivery Method Room Air Room Air Room Air Sepsis Recent Fever Within 48 Hours No Sepsis New/Unexplained Change in Mental Status N/A Sepsis Action Taken by Nursing No Action Required 10/17/20 22:34 Temperature Temperature Source Pulse Rate Pulse Rate [Right] 102 H Pulse Rhythm Pulse Rhythm [Right] Regular Pulse Strength Pulse Strength [Right] Normal Respiratory Rate 16 Respiratory Effort / Characteristics Non-Labored Spontaneous Respiratory Depth Normal Respiratory Pattern Blood Pressure Blood Pressure [Right Arm] 135/99 Blood Pressure Mean Blood Pressure Mean [Right Arm] 111 Blood Pressure Position [Right Arm] Pulse Oximetry 98 Oxygen Delivery Method Room Air Sepsis Recent Fever Within 48 Hours Sepsis New/Unexplained Change in Mental Status Sepsis Action Taken by Alf Medications Current Medication List: was personally reviewed by me Laboratory Data Attestation: I reviewed the patient's lab results. Result diagrams: 10/17/20 17:52 10/17/20 17:52 Lab Results 10/17/20 10/17/20 10/17/20 Range/Units 14:13 14:13 17:52 WBC 11.57 H (4.8-10.8) K/uL RBC 4.82 (4.7-6.1) M/uL Hgb 15.1 (14.0-18.0) g/dL Hct 44.5 (42-52) % MCV 92.3 (80-100) fL MCH 31.3 (25-34) pg MCHC 33.9 (32-36) g/dL RDW Std Deviation 46.2 (36.4-46.3) fL RDW Coeff of Gregory 13.7 (11.5-14.5) % Plt Count 310 (130-400) K/uL MPV 11.0 H (7.4-10.4) fL Immature Gran % (Auto) 0.3 % Neut % (Auto) 49.8 % Lymph % (Auto) 40.7 % [place] % (Auto) 7.9 % Eos % (Auto) 0.9 % Baso % (Auto) 0.4 % Neut # (Auto) 5.77 (1.4-6.5) K/uL Lymph # (Auto) 4.71 H (1.2-3.4) K/uL [place] # (Auto) 0.91 H (0.11-0.59) K/uL Eos # (Auto) 0.10 (0-0.5) K/uL Baso # (Auto) 0.05 (0-0.2) K/uL Immature Gran # (Auto) 0.03 H (0.00-0.02) K/uL PT (9.0-12.0) Seconds INR (0.9-1.1) APTT (21.0-31.0) Seconds PTT Ratio Sodium (136-145) mmol/L Potassium (3.5-5.1) mmol/L Chloride (98-107) mmol/L Carbon Dioxide (21-32) mmol/L Anion Gap (3-11) BUN (7-18) mg/dl Creatinine (0.6-1.4) mg/dl Est Cr Clr Drug Dosing ml/min Est GFR ( Amer) ml/min Est GFR (Non-Af Amer) ml/min BUN/Creatinine Ratio (10-20) Glucose (70-99) mg/dl Calcium (8.5-10.1) mg/dl Total Bilirubin (0.2-1) mg/dl AST (15-37) U/L ALT (12-78) U/L Alkaline Phosphatase (45-117) U/L Troponin I (0-0.045) ng/ml Total Protein (6.4-8.2) gm/dl Albumin (3.4-5.0) gm/dl Globulin (2.5-4.0) gm/dl Albumin/Globulin Ratio (0.9-2) Lipase (73-393) U/L Specimen Hemolysis Digoxin (0.8-2.0) ng/ml COVID-19 Eval Order Covid19 at [facility] SARS-CoV-2 (PCR) NEGATIVE (Negative) 10/17/20 10/17/20 10/17/20 Range/Units 17:52 17:52 17:52 WBC (4.8-10.8) K/uL RBC (4.7-6.1) M/uL Hgb (14.0-18.0) g/dL Hct (42-52) % MCV (80-100) fL MCH (25-34) pg MCHC (32-36) g/dL RDW Std Deviation (36.4-46.3) fL RDW Coeff of Gregory (11.5-14.5) % Plt Count (130-400) K/uL MPV (7.4-10.4) fL Immature Gran % (Auto) % Neut % (Auto) % Lymph % (Auto) % [place] % (Auto) % Eos % (Auto) % Baso % (Auto) % Neut # (Auto) (1.4-6.5) K/uL Lymph # (Auto) (1.2-3.4) K/uL [place] # (Auto) (0.11-0.59) K/uL Eos # (Auto) (0-0.5) K/uL Baso # (Auto) (0-0.2) K/uL Immature Gran # (Auto) (0.00-0.02) K/uL PT 12.0 (9.0-12.0) Seconds INR 1.2 H (0.9-1.1) APTT 26.3 (21.0-31.0) Seconds PTT Ratio 1.0 Sodium 137 (136-145) mmol/L Potassium 4.3 (3.5-5.1) mmol/L Chloride 104 (98-107) mmol/L Carbon Dioxide 27 (21-32) mmol/L Anion Gap 6.0 (3-11) BUN 20 H (7-18) mg/dl Creatinine 1.08 (0.6-1.4) mg/dl Est Cr Clr Drug Dosing 74.4 ml/min Est GFR ( Amer) 80.2 ml/min Est GFR (Non-Af Amer) 69.2 ml/min BUN/Creatinine Ratio 18.4 (10-20) Glucose 105 H (70-99) mg/dl Calcium 9.5 (8.5-10.1) mg/dl Total Bilirubin 0.3 (0.2-1) mg/dl AST 30 (15-37) U/L ALT 48 (12-78) U/L Alkaline Phosphatase 98 (45-117) U/L Troponin I < 0.015 (0-0.045) ng/ml Total Protein 8.5 H (6.4-8.2) gm/dl Albumin 3.5 (3.4-5.0) gm/dl Globulin 5.0 H (2.5-4.0) gm/dl Albumin/Globulin Ratio 0.7 L (0.9-2) Lipase 149 (73-393) U/L Specimen Hemolysis Digoxin 0.6 L (0.8-2.0) ng/ml COVID-19 Eval Order SARS-CoV-2 (PCR) (Negative) Administered Medications Discontinued Medications Aspirin (Aspirin Chew 324 Mg) 324 mg PO NOW STA Stop: 10/17/20 18:38 Last Admin: 10/17/20 19:01 Dose: Not Given Documented by: [id number] Imaging Data Radiologist's Impression: Chest X-Ray 10/17/20 18:37 XR chest 1V portable HISTORY: Atypical Chest Pain COMPARISON: Chest 10/03/2020. FINDINGS: There are low lung volumes. No focal lung consolidations to suggest pneumonia. No evidence for pulmonary edema. The cardiac silhouette remains top normal in size. This is likely accentuated by the low lung volumes. No pleural effusions. No pneumothorax. IMPRESSION: No acute process. ACT 112: Negative or not required by law. Electronically signed by: Emmanuel Last M.D. 10/17/2020 7:19 PM Discharge Plan Visit Data Chief Complaint: Chest Pain Stated Complaint: CHEST PAIN ED Provider: José Luis Silver Discharge Problem: Chest pain, Atrial fibrillation Patient Disposition: Being Evaluated by Hospitalist Condition: Good Forms Stand Alone Forms: [facility] Prescriptions Prescriptions: No Action Promacta 25 mg Tablet 50 mg PO DAILY RF: 0 digoxin 125 mcg (0.125 mg) tablet 125 mcg PO DAILY RF: 0 metoprolol succinate 100 mg tablet extended release 24 hr 100 mg PO DAILY RF: 0 doxycycline hyclate 100 mg tablet 100 mg PO BID RF: 0 Referrals Referrals: Demetrius Edgar MD [Primary Care Provider] -
[2020-10-17 19:04] LABS: Basophils # (auto) 0.05 K/uL (0-0.2); Basophils % (auto) 0.4 %; Eosinophils % (auto) 0.9 %; Hematocrit (blood only) 44.5 % (42-52); Hemoglobin 15.1 g/dL (14.0-18.0); Immature Granulocytes # (auto) 0.03 K/uL (0.00-0.02); Immature Granulocytes % (auto) 0.3 %; Lymphocytes # (auto) 4.71 K/uL (1.2-3.4); Lymphocytes % (auto) 40.7 %; Mean Corpuscular Hemoglobin 31.3 pg (25-34); Mean Corpuscular Hgb Conc 33.9 g/dL (32-36); Mean Corpuscular Volume 92.3 fL (80-100); Monocytes # (auto) 0.91 K/uL (0.11-0.59); Monocytes % (auto) 7.9 %; Neutrophils # (auto) 5.77 K/uL (1.4-6.5); Neutrophils % (auto) 49.8 %; Platelet Count 310 K/uL (130-400); RDW Coefficient of Variation 13.7 % (11.5-14.5); RDW Standard Deviation 46.2 fL (36.4-46.3); Red Blood Count 4.82 M/uL (4.7-6.1); White Blood Count 11.57 K/uL (4.8-10.8)
--- NOTE | 2020-10-17 19:20 | XRay Report ---
XR chest 1V portable HISTORY: Atypical Chest Pain COMPARISON: Chest 10/03/2020. FINDINGS: There are low lung volumes. No focal lung consolidations to suggest pneumonia. No evidence for pulmonary edema. The cardiac silhouette remains top normal in size. This is likely accentuated by the low lung volumes. No pleural effusions. No pneumothorax. IMPRESSION: No acute process. ACT 112: Negative or not required by law. Electronically signed by: Emmanuel Last M.D. 10/17/2020 7:19 PM
[2020-10-17 19:21] LABS: INR 1.2 (0.9-1.1); Partial Thromboplastin Time 26.3 Seconds (21.0-31.0)
[2020-10-17 19:36] LABS: Alanine Aminotransferase 48 U/L (12-78); Albumin Level 3.5 gm/dl (3.4-5.0); Aspartate Aminotransferase 30 U/L (15-37); BUN Creatinine Ratio 18.4 (10-20); Blood Urea Nitrogen 20 mg/dl (7-18); Calcium 9.5 mg/dl (8.5-10.1); Carbon Dioxide 27 mmol/L (21-32); Chloride 104 mmol/L (98-107); Creatinine Clr Calc Pharmacy 74.4 ml/min; Est GFR (African American) 80.2 ml/min; Est GFR (Non-African American) 69.2 ml/min; Glucose 105 mg/dl (70-99); Lipase 149 U/L (73-393); Potassium 4.3 mmol/L (3.5-5.1); Sodium 137 mmol/L (136-145)
[2020-10-17 19:39] LABS: Albumin Globulin Ratio 0.7 (0.9-2); Alkaline Phosphatase 98 U/L (45-117); Bilirubin,Total 0.3 mg/dl (0.2-1); Total Protein 8.5 gm/dl (6.4-8.2); Troponin I < 0.015 ng/ml (0-0.045)
--- NOTE | 2020-10-17 21:55 | History & Physical Report ---
Date of Service October 17, 2020 Assessment & Plan (1) Chest pain: Plan: 70yo male with ITP, recently-diagnosed atrial fibrillation (not on anticoagulation due to history of ITP), CLL, MARGARET, HTN presents with chest pain. Chest pain One-day history of intermittent CP EKG shows atrial fibrillation with RVR with diffuse ST segment changes, though unchanged from prior Initial troponin negative, repeat q6h x2 Prior echo (10/04/20) EF 55-60%, normal LV size/function, no wall motion abnormalities, sclerotic AV w/o stenosis, mild MR; repeat echo not indicated at this time Admit for observation to med/surg telemetry EKG with CP Consider outpatient stress test A1c, lipid profile ordered Atrial fibrillation with RVR Metoprolol succinate recently decreased from 200mg daily to 100mg PO qhs after patient unable to tolerate dose increased (developed nausea which resolved with dose decrease) Also recently started on digoxin 125mcg daily by his cardiology [employer] ([facility]) Currently not on anticoagulation d/t history of ITP; [id number] score of 1 INR 1.2 on admission Continue home metoprolol, digoxin SCD's Consider watchman procedure on an outpatient basis Presumed tick-borne illness Diagnosed during last admission, started 14-day course of doxycycline on 10/06 Platelets wnl on admission at 310, mild leukocytosis Continue doxycycline 100mg bid (final dose will be evening of 10/20) Trend daily CBC Impaired fasting glucose vs DM2 Patient currently does not carry a diagnosis of DM2, but review of records shows an A1c of 8.6 in 02/2018 and prior metformin therapy since discontinued Not on any DM2 medications Repeat A1c ordered, lipid profile ordered ITP Follows with [facility] Platelet count 24 upon prior admission (10/03), improved to 49 on discharge Received one dose of IVIg during prior admission Trend daily CBC HTN BP well-controlled at this time Continue home metoprolol CLL Follows with [facility] [place] Ongoing discussions regarding possibly starting ibrutinib Has pending bone marrow chromosomal testing for diagnostic confirmation FEN: heart healthy diet, IVF not indicated Code status: full code DVT ppx: SCD's Held home meds: Promacta (not on hospital formulary, patient's can bring it in if needed) Isolation: none Consults: none PT/OT: not indicated Dispo: med/surg telemetry (2) Atrial fibrillation with rapid ventricular response: (3) Chronic ITP (idiopathic thrombocytopenia): (4) CLL (chronic lymphocytic leukemia): (5) Hypertension: History of Present Illness Chief Complaint: chest pain Primary Care Provider: Demetrius Edgar MD 70yo male with ITP, recently-diagnosed atrial fibrillation (not on anticoagulation due to history of ITP), CLL, MARGARET, HTN presents with chest pain. Patient's CP started this morning and has been intermittent throughout the day. Patient endorses four episodes of this throughout the day, the first three lasting five minutes and the fourth episode lasting about ten minutes. Each time, patient felt a sharp stabbing pain across his lower chest as well as pain in his left shoulder. During the third episode, patient felt cold and clammy, and during the fourth episode patient developed SOB. Patient's pain was most intense during the fourth/final episode, which reached 7/10 in severity. Patient has no symptoms at this time and feels well. Patient denies fever, chills, palpitations, nausea, vomiting, abdominal pain, constipation, diarrhea, dysuria, numbness, tingling, or weakness. Patient was recently admitted for newly-diagnosed atrial fibrillation with RVR, for which he is not on anticoagulation due to his history of ITP. Patient was started on empiric doxycycline treatment on the day of discharge due to suspicion for tickborne illness given his low platelets and recent potential tick exposure. Patient's platelets were 23 at prior admission and 49 on day of discharge. Patient did receive a dose of IVIg during previous admission given concern for ITP. Of note, patient saw a nurse practitioner with [facility] cardiology earlier this week, who lowered his metoprolol dose from 200mg to 100mg nightly after patient developed nausea suspected to be a side-effect of metoprolol. Digoxin 125mcg nightly was also added at this time. Patient has been tolerating these med regimen changes well. Patient has a history of ITP which was treated with rituximab, and is not currently being treated. Patient also has a history of CLL for which is currently undergoing workup for, with his oncologist considering ibrutinib therapy. Patient follows with [facility] for both conditions. Patient is a former smoker and quit in 1975. Patient denies alcohol or other recreational substance use. Allergies Allergy/AdvReac Type Severity Reaction Status Date / Time lisinopril AdvReac Cough Verified 10/17/20 20:40 Home Medications Medication Instructions Recorded Confirmed Type eltrombopag 25 mg tablet (Promacta) 50 mg PO DAILY 02/20/18 10/17/20 History digoxin 125 mcg (0.125 mg) tablet 125 mcg PO DAILY 10/17/20 10/17/20 History doxycycline hyclate 100 mg tablet 100 mg PO BID 10/17/20 10/17/20 History metoprolol succinate 100 mg 100 mg PO DAILY 10/17/20 10/17/20 History tablet,extended release 24 hr 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 SLEEP APNEA Family History Grandmother (Maternal) Family history of breast cancer Social History Smoking Status: Former smoker Tobacco Type: Cigarettes Cigarettes Per Day: QUIT 1975; Hx Alcohol Use: No Hx Substance Use: No Preferred Language: Yi Communication Ability: Effective Senior Data Architect Required: No Beliefs That Will Affect Care: None marital status: Current Living Situation: Spouse Feels Safe at Home: Yes Assistive Devices: Glasses Review of Systems Review of Systems: See HPI Physical Exam Physical Exam: Constitutional: well-appearing, no acute distress HEENT: NCAT, no conjunctival injection, PERRLA, MMM CV: tachycardic, irregularly irregular rhythm, no murmur appreciated, extremities well-perfused, no LE edema Resp: CTABL, no wheezes/rales/rhonchi appreciated, no increased work of breathing GI: soft, nondistended, nontender, BS normoactive MSK: no chest wall tenderness, no thigh or calf tenderness bilaterally Skin: warm, dry, no rash or ecchymosis appreciated Neuro: AOx4, CN2-12 grossly intact, upper and lower extremity strength 5/5 bilaterally, no focal neurological deficits appreciated, [id number] testing unremarkable Results & Data Results & Data ([facility]) Vital Signs (Past 12 Hours) Vital Signs Temp Pulse Pulse Resp BP BP Pulse Ox 10/17/20 20:29 112 H 16 154/85 H 96 10/17/20 19:05 106 H 16 136/90 98 10/17/20 18:19 36.6 C 100 H 20 137/85 99 Laboratory Results Laboratory Results WBC 11.57 K/uL (4.8-10.8) H 10/17/20 17:52 RBC 4.82 M/uL (4.7-6.1) 10/17/20 17:52 Hgb 15.1 g/dL (14.0-18.0) 10/17/20 17:52 Hct 44.5 % (42-52) 10/17/20 17:52 MCV 92.3 fL (80-100) 10/17/20 17:52 MCH 31.3 pg (25-34) 10/17/20 17:52 MCHC 33.9 g/dL (32-36) 10/17/20 17:52 RDW Std Deviation 46.2 fL (36.4-46.3) 10/17/20 17:52 RDW Coeff of Gregory 13.7 % (11.5-14.5) 10/17/20 17:52 Plt Count 310 K/uL (130-400) 10/17/20 17:52 MPV 11.0 fL (7.4-10.4) H 10/17/20 17:52 Immature Gran % (Auto) 0.3 % 10/17/20 17:52 Neut % (Auto) 49.8 % 10/17/20 17:52 Lymph % (Auto) 40.7 % 10/17/20 17:52 [place] % (Auto) 7.9 % 10/17/20 17:52 Eos % (Auto) 0.9 % 10/17/20 17:52 Baso % (Auto) 0.4 % 10/17/20 17:52 Neut # (Auto) 5.77 K/uL (1.4-6.5) 10/17/20 17:52 Lymph # (Auto) 4.71 K/uL (1.2-3.4) H 10/17/20 17:52 [place] # (Auto) 0.91 K/uL (0.11-0.59) H 10/17/20 17:52 Eos # (Auto) 0.10 K/uL (0-0.5) 10/17/20 17:52 Baso # (Auto) 0.05 K/uL (0-0.2) 10/17/20 17:52 Immature Gran # (Auto) 0.03 K/uL (0.00-0.02) H 10/17/20 17:52 PT 12.0 Seconds (9.0-12.0) 10/17/20 17:52 INR 1.2 (0.9-1.1) H 10/17/20 17:52 APTT 26.3 Seconds (21.0-31.0) 10/17/20 17:52 PTT Ratio 1.0 10/17/20 17:52 Sodium 137 mmol/L (136-145) 10/17/20 17:52 Potassium 4.3 mmol/L (3.5-5.1) 10/17/20 17:52 Chloride 104 mmol/L (98-107) 10/17/20 17:52 Carbon Dioxide 27 mmol/L (21-32) 10/17/20 17:52 Anion Gap 6.0 (3-11) 10/17/20 17:52 BUN 20 mg/dl (7-18) H 10/17/20 17:52 Creatinine 1.08 mg/dl (0.6-1.4) 10/17/20 17:52 Est Cr Clr Drug Dosing 74.4 ml/min 10/17/20 17:52 Est GFR ( Amer) 80.2 ml/min 10/17/20 17:52 Est GFR (Non-Af Amer) 69.2 ml/min 10/17/20 17:52 BUN/Creatinine Ratio 18.4 (10-20) 10/17/20 17:52 Glucose 105 mg/dl (70-99) H 10/17/20 17:52 Calcium 9.5 mg/dl (8.5-10.1) 10/17/20 17:52 Total Bilirubin 0.3 mg/dl (0.2-1) 10/17/20 17:52 AST 30 U/L (15-37) 10/17/20 17:52 ALT 48 U/L (12-78) 10/17/20 17:52 Alkaline Phosphatase 98 U/L (45-117) 10/17/20 17:52 Troponin I < 0.015 ng/ml (0-0.045) 10/17/20 17:52 Total Protein 8.5 gm/dl (6.4-8.2) H 10/17/20 17:52 Albumin 3.5 gm/dl (3.4-5.0) 10/17/20 17:52 Globulin 5.0 gm/dl (2.5-4.0) H 10/17/20 17:52 Albumin/Globulin Ratio 0.7 (0.9-2) L 10/17/20 17:52 Lipase 149 U/L (73-393) 10/17/20 17:52 Specimen Hemolysis 10/17/20 17:52 Digoxin 0.6 ng/ml (0.8-2.0) L 10/17/20 17:52 COVID-19 Eval Order Covid19 at [facility] 10/17/20 14:13 SARS-CoV-2 (PCR) NEGATIVE (Negative) 10/17/20 14:13 Impressions Chest X-Ray 10/17/20 18:37 XR chest 1V portable HISTORY: Atypical Chest Pain COMPARISON: Chest 10/03/2020. FINDINGS: There are low lung volumes. No focal lung consolidations to suggest pneumonia. No evidence for pulmonary edema. The cardiac silhouette remains top normal in size. This is likely accentuated by the low lung volumes. No pleural effusions. No pneumothorax. IMPRESSION: No acute process. ACT 112: Negative or not required by law. Electronically signed by: Emmanuel Last M.D. 10/17/2020 7:19 PM ECG Additional Comments: EKG with atrial fibrillation at 113, , QRS=98, PNk=275, non-specific ST changes simmilar to prior Supervising Physician Co-Signing Physician Notes Patient seen and examined, chart reviewed, case discussed with Dr. Maria and I agree wtih his assessment and plan as documented above. In brief, patient is a 70yo male with history of ITP presently on Promacta (IVIG infusion appx 2 weeks ago), CLL, newly diagnosed atrial fibrillation presenting with several episodes of chest pain. Non-exertional, non-pleuritic, non-positional. Presently chest pain free On exam he is afebrile, HD stable HEENT -NC/AT, PERRL, MMM, Neck supple Heart - +S1/S2, irregularly irregular, no m/r/g Lungs - CTA Abd - +BS, soft, NT/ND Ext - No edema Labs and images reviewed Assessment/Plan -chest pain - atypical. Patient with history of HTN, ?h/o DM with elevated A1C in the past. -Telemetry monitoring, trend troponin, consider outpatient stress testing pending results -No anticoagulation at this time for atrial fibrillation - patient follows with Hematology as well as Cardiology at [facility]. Patient's platelets have been somewhat unpredictable lateley - presently improved. Decision to defer anticoagulation at this time. -Complete course of doxycycline as prescribed -Remainder of plan as above Resident Activity Tracking Resident Involvement: Resident Care Provided Care Provided: Adult Hospital Medicine (1) Hypertension Hypertension type: unspecified Qualified Code(s): I10 - Essential (primary) hypertension
[2020-10-17] MEDS ORDERED: METOPROLOL TARTRATE 1 MG/ML VIAL IV PRN (22:49)
[2020-10-17] MEDS ORDERED: DIGOXIN 0.125 MG TAB PO ONE ×2 (22:49→23:45)
[2020-10-17] MEDS ORDERED: DOXYCYCLINE HYCLATE 100 MG CAP PO SCH (23:00)
[2020-10-17] MEDS ORDERED: METOPROLOL SUCC 50MG EXT REL TAB PO STA (23:33)
--- NOTE | 2020-10-18 00:20 | Billing Data ---
Date of Service October 17, 2020 Coding Level of Care Code INT OBSERVATION CARE 70M LVL 3
[2020-10-18] MEDS ORDERED: ACETAMINOPHEN 325 MG TAB PO PRN (01:13)
[2020-10-18] MEDS ORDERED: POLYETHYLENE (MIRALAX) 17 GM PACK PO PRN (01:13)
[2020-10-18] MEDS ORDERED: ONDANSETRON INJ 2 MG/ML 2 ML VIAL IV PRN (01:13)
[2020-10-18 02:06] LABS: Hematocrit (blood only) 43.6 % (42-52); Hemoglobin 14.8 g/dL (14.0-18.0); Mean Corpuscular Hgb Conc 33.9 g/dL (32-36); Mean Corpuscular Volume 91.2 fL (80-100); Mean Platelet Volume 10.9 fL (7.4-10.4); Platelet Count 294 K/uL (130-400); RDW Coefficient of Variation 13.6 % (11.5-14.5); RDW Standard Deviation 45.1 fL (36.4-46.3); Red Blood Count 4.78 M/uL (4.7-6.1)
[2020-10-18 02:18] LABS: INR 1.2 (0.9-1.1)
[2020-10-18 02:23] LABS: Alanine Aminotransferase 45 U/L (12-78); Albumin Level 3.4 gm/dl (3.4-5.0); Aspartate Aminotransferase 27 U/L (15-37); Bilirubin Direct 0.1 mg/dl (0-0.2); Blood Urea Nitrogen 19 mg/dl (7-18); Calcium 8.8 mg/dl (8.5-10.1); Carbon Dioxide 24 mmol/L (21-32); Chloride 106 mmol/L (98-107); Creatinine Clr Calc Pharmacy 90.3 ml/min; Est GFR (African American) 100.4 ml/min; Est GFR (Non-African American) 86.6 ml/min; Glucose 110 mg/dl (70-99); Potassium 4.1 mmol/L (3.5-5.1); Sodium 136 mmol/L (136-145)
[2020-10-18 02:28] LABS: Albumin Globulin Ratio 0.7 (0.9-2); Alkaline Phosphatase 82 U/L (45-117); Bilirubin,Total 0.4 mg/dl (0.2-1); Chol HDL Ratio 3; Cholesterol 109 mg/dl (0-200); Globulin 4.7 gm/dl (2.5-4.0); HDL Cholesterol 34 mg/dl; LDL Cholesterol Calculated 56 mg/dl; Total Protein 8.1 gm/dl (6.4-8.2); Triglycerides 97 mg/dl (0-150); Troponin I < 0.015 ng/ml (0-0.045); VLDL Cholesterol 19 mg/dl
[2020-10-18 03:00] LABS: Basophils # (auto) 0.04 K/uL (0-0.2); Basophils % (auto) 0.3 %; Eosinophils # (auto) 0.15 K/uL (0-0.5); Eosinophils % (auto) 1.1 %; Immature Granulocytes # (auto) 0.03 K/uL (0.00-0.02); Immature Granulocytes % (auto) 0.2 %; Lymphocytes # (auto) 6.65 K/uL (1.2-3.4); Lymphocytes % (auto) 50.4 %; Monocytes # (auto) 0.65 K/uL (0.11-0.59); Monocytes % (auto) 4.9 %; Neutrophils # (auto) 5.68 K/uL (1.4-6.5); Neutrophils % (auto) 43.1 %; RBC Morphology Unremarkable
[2020-10-18 07:49] LABS: Estimated Average Glucose 134 mg/dl; Hemoglobin A1C 6.3 % (4.5-5.6)
[2020-10-18] MEDS ORDERED: DOXYCYCLINE HYCLATE 100 MG CAP PO SCH (09:00)
--- NOTE | 2020-10-18 12:12 | Electrocardiogram Report ---
Test Reason : Blood Pressure : / mmHG Vent. Rate : 113 BPM Atrial Rate : 131 BPM P-R Int : 000 ms QRS Dur : 098 ms QT Int : 324 ms P-R-T Axes : 000 -13 -14 degrees QTc Int : 444 ms Poor data quality, interpretation may be adversely affected Atrial fibrillation Nonspecific T wave abnormality Abnormal ECG When compared with ECG of 03-OCT-2020 17:02, Nonspecific T wave abnormality is now present Confirmed by Ludwin Mccormack ([id number]) on 10/18/2020 12:11:43 PM Referred By: REFERRED SELF Confirmed By:Ludwin Mccormack
--- NOTE | 2020-10-18 15:41 | Hospitalist Progress Note ---
Date of Service October 18, 2020 Assessment & Plan (1) Chest pain: Plan: 70yo male with ITP, recently-diagnosed atrial fibrillation (not on anticoagulation due to history of ITP), CLL, MARGARET, HTN presents with chest pain. Chest pain One-day history of intermittent CP EKG shows atrial fibrillation with RVR with diffuse ST segment changes, though unchanged from prior Initial troponin negative, repeat q6h x2 Prior echo (10/04/20) EF 55-60%, normal LV size/function, no wall motion abnormalities, sclerotic AV w/o stenosis, mild MR; repeat echo not indicated at this time On med/surg telemetry EKG 10/17: Nonspecific T wave abnormality is now present Consider outpatient stress test A1c- 6.5, down from 8.6 on 03/08/18; lipid profile lab values all within normal limits Atrial fibrillation with RVR Metoprolol succinate recently decreased from 200mg daily to 100mg PO qhs after patient unable to tolerate dose increased (developed nausea which resolved with dose decrease) Also recently started on digoxin 125mcg daily by his cardiology [employer] ([facility]) Currently not on anticoagulation d/t history of ITP; [id number] score of 1 INR 1.2 on admission Continue home metoprolol, digoxin SCD's Consider watchman procedure on an outpatient basis Presumed tick-borne illness Diagnosed during last admission, started 14-day course of doxycycline on 10/06 Platelets wnl on admission at 310, mild leukocytosis Continue doxycycline 100mg bid (final dose will be evening of 10/20) Trend daily CBC Impaired fasting glucose vs DM2 Patient currently does not carry a diagnosis of DM2, but review of records shows an A1c of 8.6 in 02/2018 and prior metformin therapy since discontinued Not on any DM2 medications Repeat A1c ordered, lipid profile ordered ITP Follows with [facility] Platelet count 24 upon prior admission (10/03), improved to 49 on discharge Received one dose of IVIg during prior admission Platelet count 294 this AM Trend daily CBC HTN BP well-controlled at this time Continue home metoprolol CLL Follows with [facility] Ongoing discussions regarding possibly starting ibrutinib Has pending bone marrow chromosomal testing for diagnostic confirmation FEN: heart healthy diet, IVF not indicated Code status: full code DVT ppx: SCD's Held home meds: Promacta (not on hospital formulary, patient's can bring it in if needed) Isolation: none Consults: none PT/OT: not indicated Dispo: med/surg telemetry (2) Atrial fibrillation with rapid ventricular response: (3) Chronic ITP (idiopathic thrombocytopenia): (4) CLL (chronic lymphocytic leukemia): (5) Hypertension: Admission and Anticipated Discharge Date Admission Date: October 17, 2020 Supervising Physician Co-Signing Physician Notes Please see attestation on the discharge summary of the same date. Subjective No acute events overnight. Mr. Irene is sitting in his chair this morning resting comfortably. He denies any chest pain/tightness, shortness of breath, numbness, tingling, or weakness. Review of Systems Constitutional: as per Subjective / HPI Physical Exam Constitutional: WD/WN, vitals as above Respiratory: normal respiratory effort, lungs clear to auscultation Cardiovascular: Rate/Rhythm: + irregularly irregular Gastrointestinal (Abdomen): normal bowel sounds, soft, nontender, no hepatosplenomegaly Results & Data Results & Data ([facility]) Vital Signs (Past 12 Hours) Vital Signs Temp Pulse Pulse Resp BP Pulse Ox 10/18/20 15:12 36.4 C L 99 H 18 152/97 H 97 10/18/20 11:12 36.8 C 97 H 20 133/84 96 10/18/20 07:40 36.4 C L 98 H 16 122/80 96 10/18/20 07:17 92 H Resident Activity Tracking Resident Involvement: Resident Care Provided Care Provided: Adult Hospital Medicine (1) Hypertension Hypertension type: unspecified Qualified Code(s): I10 - Essential (primary) hypertension
--- NOTE | 2020-10-18 17:07 | Discharge Summary ---
Date of Service October 18, 2020 Admission HPI Per Admitting Provider 70yo male with ITP, recently-diagnosed atrial fibrillation (not on anticoagulation due to history of ITP), CLL, MARGARET, HTN presents with chest pain. Patient's CP started this morning and has been intermittent throughout the day. Patient endorses four episodes of this throughout the day, the first three lasting five minutes and the fourth episode lasting about ten minutes. Each time, patient felt a sharp stabbing pain across his lower chest as well as pain in his left shoulder. During the third episode, patient felt cold and clammy, and during the fourth episode patient developed SOB. Patient's pain was most in tense during the fourth/final episode, which reached 7/10 in severity. Patient has no symptoms at this time and feels well. Patient denies fever, chills, palpitations, nausea, vomiting, abdominal pain, constipation, diarrhea, dysuria, numbness, tingling, or weakness. Patient was recently admitted for newly-diagnosed atrial fibrillation with RVR, for which he is not on anticoagulation due to his history of ITP. Patient was started on empiric doxycycline treatment on the day of discharge due to suspicion for tickborne illness given his low platelets and recent potential tick exposure. Patient's platelets were 23 at prior admission and 49 on day of discharge. Patient did receive a dose of IVIg during previous admission given concern for ITP. Of note, patient saw a nurse practitioner with [facility] cardiology earlier this week, who lowered his metoprolol dose from 200mg to 100mg nightly after patient developed nausea suspected to be a side-effect of metoprolol. Digoxin 125mcg nightly was also added at this time. Patient has been tolerating these med regimen changes well. Patient has a history of ITP which was treated with rituximab, and is not currently being treated. Patient also has a history of CLL for which is currently undergoing workup for, with his oncologist considering ibrutinib therapy. Patient follows with [facility] for both conditions. Patient is a former smoker and quit in 1975. Patient denies alcohol or other recreational substance use. Admission Exam Per Admitting Provider Constitutional: well-appearing, no acute distress HEENT: NCAT, no conjunctival injection, PERRLA, MMM CV: tachycardic, irregularly irregular rhythm, no murmur appreciated, extremities well-perfused, no LE edema Resp: CTABL, no wheezes/rales/rhonchi appreciated, no increased work of breathing GI: soft, nondistended, nontender, BS normoactive MSK: no chest wall tenderness, no thigh or calf tenderness bilaterally Skin: warm, dry, no rash or ecchymosis appreciated Neuro: AOx4, CN2-12 grossly intact, upper and lower extremity strength 5/5 bilaterally, no focal neurological deficits appreciated, ktbkbt-mt-fbtq testing unremarkable Principal Diagnosis Atypical chest pain Discharge Exam Constitutional WD/WN, vitals as above Cardiovascular RRR, no murmur, no edema Rate/Rhythm: + irregularly irregular Gastrointestinal (Abdomen) normal bowel sounds, soft, nontender, no hepatosplenomegaly Discharge Data Allergies Allergy/AdvReac Type Severity Reaction Status Date / Time lisinopril AdvReac Cough Verified 10/17/20 20:40 Consultations 10/17/20 21:31 ED Decision to Admit Stat Hospital Course (1) Chest pain: 70yo male with ITP, recently-diagnosed atrial fibrillation (not on anticoagulation due to history of ITP), CLL, MARGARET, HTN presents with chest pain. Chest pain One-day history of intermittent CP EKG shows atrial fibrillation with RVR with diffuse ST segment changes, though unchanged from prior Initial troponin negative, repeat q6h x2 Prior echo (10/04/20) EF 55-60%, normal LV size/function, no wall motion abnormalities, sclerotic AV w/o stenosis, mild MR; repeat echo not indicated at this time On med/surg telemetry EKG 10/17: Nonspecific T wave abnormality is now present Consider outpatient stress test A1c- 6.5, down from 8.6 on 03/08/18; lipid profile lab values all within normal limits Atrial fibrillation with RVR Metoprolol succinate recently decreased from 200mg daily to 100mg PO qhs after patient unable to tolerate dose increased (developed nausea which resolved with dose decrease) Also recently started on digoxin 125mcg daily by his cardiology [employer] ([facility]) Currently not on anticoagulation d/t history of ITP; [id number] score of 1 INR 1.2 on admission Continue home metoprolol, digoxin SCD's Consider watchman procedure on an outpatient basis Presumed tick-borne illness Diagnosed during last admission, started 14-day course of doxycycline on 10/06 Platelets wnl on admission at 310, mild leukocytosis Continue doxycycline 100mg bid (final dose will be evening of 10/20) Trend daily CBC Impaired fasting glucose vs DM2 Patient currently does not carry a diagnosis of DM2, but review of records shows an A1c of 8.6 in 02/2018 and prior metformin therapy since discontinued Not on any DM2 medications Repeat A1c ordered, lipid profile ordered ITP [place]s with [facility] Platelet count 24 upon prior admission (10/03), improved to 49 on discharge Received one dose of IVIg during prior admission Platelet count 294 this AM Trend daily CBC HTN BP well-controlled at this time Continue home metoprolol CLL Follows with [facility] Ongoing discussions regarding possibly starting ibrutinib Has pending bone marrow chromosomal testing for diagnostic confirmation FEN: heart healthy diet, IVF not indicated Code status: full code DVT ppx: SCD's Held home meds: Promacta (not on hospital formulary, patient's can bring it in if needed) Isolation: none Consults: none PT/OT: not indicated Dispo: med/surg telemetry (2) Atrial fibrillation with rapid ventricular response: (3) Chronic ITP (idiopathic thrombocytopenia): (4) CLL (chronic lymphocytic leukemia): (5) Hypertension: Total Time Total Time Spent Total Time Spent (In Minutes): 20 Discharge Plan Discharge Items Patient Disposition: Home - Self-Care Reason For Visit: CHEST PAIN Discharge Diagnosis: Atypical chest pain Condition on Discharge: Good Activity: Per Instructions section Non-emergency contact: Primary Care Provider Call non-emergency contact if: your symptoms worsen, your pain is not controlled, your pain is unusual for you and your pain is concerning for you Follow-up/Referrals: Demetrius Edgar MD [Primary Care Provider] - Diet: Regular Addtl Attending Provider Instructions: You were admitted to the hospital for atypical chest pain. You were treated with your home aspirin, metoprolol and digoxin. A discharge summary will be sent to your primary care physician to ensure continuity of care. Please bring this discharge summary with you to your next office appointment so that your provider can review it at that time. Follow-up appointments: Make a follow-up appointment with your PCP within the next week. It is very important that you follow up with them shortly after discharge from the hospital. Medications: We believe your chest pain may have been caused by acid reflux, or GERD. Therefore, we recommend that you take: * Prilosec OTC: This is an efyh-pxs-hwxlfza medication so you do not need a prescription to purchase. Take Prilosec OTC (20 mg) one tablet a day for 14 days. * Pepcid AC: This is also an molm-uor-szdcqid medication, so you do not need a prescription to purchase. Take Pepcid AC (10 mg) one tablet as needed for heartburn. Do not take more than four (40 mg) daily Take your medications as instructed; do not skip a dose of your medicines. Make sure all of your doctors know every medicine you are taking (including wnav-hjh-kzepacj medicines, vitamins, and supplements). Call your primary care provider before taking any new medicines (including cypa-usd-mglxxpe medicines, vitamins, and supplements), because some of these may interact with your current medications, or may make your symptoms worse. Tell your primary care provider if you cannot afford your medications. CONTACT YOUR PRIMARY CARE PROVIDER if you experience any of the following: Chest pain or tightness that radiates to the neck, left arm, or jaw. Cold, clammy skin, dizziness/lightheadedness, or shortness of breath/difficulty breathing Difficulty following your treatment plan, or difficulty taking medications CALL 911 OR GO TO THE EMERGENCY DEPARTMENT if you experience any of the following: Sudden, severe abdominal pain or nausea/vomiting Severe chest pain, or chest pain that radiates (moves) to your jaw or arm Sudden, severe shortness of breath or difficulty breathing Thank you for allowing us to participate in your care. Pending Studies at Discharge: No Stand-Alone Forms: My [facility] [employer], Smoking Cessation Medications and DC Order Prescriptions: Continued Promacta 25 mg Tablet 50 mg PO DAILY RF: 0 digoxin 125 mcg (0.125 mg) tablet 125 mcg PO DAILY RF: 0 metoprolol succinate 100 mg tablet extended release 24 hr 100 mg PO DAILY RF: 0 doxycycline hyclate 100 mg tablet 100 mg PO BID RF: 0 Discharge Orders: Discharge Order (Routine); Ordered 10/18/20 Ordered By: Gilbert May/Other Patient Handouts: A1C Admission Data Admit Date/Time: 10/17/20 23:01 Attending Provider: Jaimie Monreal Admit Provider: Jose E Maria Primary Care Provider: Demetrius Edgar Other Providers: Sheeba Carr Other Interventions: Discharge Summary Assessment (RN) Last Done: 10/18/20 15:40 Supervising Physician Co-Signing Physician Notes Patient seen and examined independently of PGY-1 Dr. Tena. Agree with hospital course as plan of care as described. In brief, Mr. Irene is a 70 year old male with history of ITP, CLL, recently diagnosed afib admitted with 1 day of intermittent chest pain. Had several episodes of chest pain that day prior to being seen in the ED as wel l as some increased acid reflux symptoms. Serial troponins undetectable. EKG unchanged from prior. Can consider an outpatient stress test if there is still concern for cardiac etiology; however suspect this may be related to either reflux vs esophageal spasm. He can use pepcid or omeprazole OTC. He does recall having a prescription for an acid suppressant in the past from his PCP. He avoids foods that tend to trigger his reflux. There was question regarding hx of DM vs preDM. Repeat A1C here was 6.3%. In the ED, noted to be in afib with RVR. After receiving home medications (metoprolol 150mg and digoxin), heart rate normalized. He is already set up to see Dr. Conner when she is here in [place] to discuss Watchman procedure. Platelet count is stable. He follows with hematology/oncology at [place]. Other chronic issues were stable and home medications were continued. Discharge home today. No medication changes made. He will follow up with PCP in 7-10 days. I personally spent 25 minutes discharge planning for this patient. Resident Activity Tracking Resident Involvement: Resident Care Provided Care Provided: Adult Hospital Medicine
[2020-10-18] MEDS ORDERED: DIGOXIN 0.125 MG TAB PO SCH (21:00)
[2020-10-18] MEDS ORDERED: METOPROLOL SUCC 50MG EXT REL TAB PO SCH ×2 (21:00)
== END 2020-10-18 16:30 | disposition home or self-care (01) ==
LOC: ED 18:16 → 2N 18:16 → SUATTDRO 23:01 → 2N 10-18 00:13